=== PATIENT | male | born 1965 | race Caucasian/White ===

== ENCOUNTER 2021-05-25 08:00 | Outpatient (CLI) | payer BC, SELFPAY ==
--- NOTE | ~2021-05-25 | XR_ITS ---
EXAMINATION: XR lg joint inject/asp w image DATE: 05/25/2021 08:46 INDICATION: Unilateral primary osteoarthritis, right hip. TECHNIQUE: A time-out was performed to verify the patient's name, date of , and procedure to b e performed. The procedure including the risks, benefits, and alternatives was discussed with the pat ient. Risks discussed included bleeding and infection. The patient understood the risks and agreed to proceed. The skin overlying the right hip joint was prepped and draped in usual sterile fashion. A nesthetic was administered with 1% lidocaine subcutaneously. A 22 G needle was advanced under fluoro scopic guidance into the joint. Injection of 1 mL of Omnipaque 240 confirmed intra-articular positio n of the needle. Subsequently, injectate consisting of 5 mL 1% lidocaine and 2 mL 10 mg/mL Kenalog w as instilled. The needle was removed and the entry site was cleaned and dressed. There were no imme diate complications. Fluoroscopy exposure time w 0.0 minutes. The total number of images was 1. FINDINGS: Real-time fluoroscopy demonstrates the needle in the right hip joint. Patient's pain prior to procedure:6/10. Patient's pain following the procedure: /10. IMPRESSION: 1. Fluoroscopy guided right hip joint injection of local anesthetic and steroid with decrease in the patient's presenting pain. Reviewed, dictated and finalized at location A.
== END 2021-05-25 08:01 | disposition home or self-care (01) ==
LOC: ANHIMG 08:06
PROVIDERS: PCP Emergency Medicine; Visit Provider Orthopaedic Surgery
DX: M25.551 Pain in right hip (principal); M16.11 Unilateral primary osteoarthritis, right hip
CPT/HCPCS: 20610; 77002; J3301; Q9966

== ENCOUNTER 2022-03-27 13:54 | Outpatient (CLI) | payer BC, SELFPAY ==
--- NOTE | 2022-03-27 15:05 | ECG_ITS ---
Measurements Intervals [place] Rate: 67 P: 0 TX: 162 QRS: 11 QRSD: 105 T: 30 QT: 389 QTc: 413 Interpretive Statements SINUS RHYTHM NORMAL ECG Electronically Signed On 03-27-2022 16:03:38 CDT by Ronnie Edmonds D.O.
[2022-03-27 15:34] LABS: Basophils Percent Auto 0.2 % (0.2-1.2); Eosinophils Absolute Auto 0.4 K/mm3 (0-0.3); Eosinophils Percent Auto 4.1 % (0-4.4); Hematocrit 40.5 % (42.0-52.0); Hemoglobin 13.8 g/dL (14.0-18.0); Immature Granulocyte Absolute 0.04 K/mm3 (0.00-0.031); Immature Granulocyte Percent A 0.5 % (0-0.5); Lymphocytes Absolute Auto 2.55 K/mm3 (0.9-3.2); Lymphocytes Percent Auto 29.3 % (18.3-44.2); Mean Corpuscular HGB Conc 34.1 g/dl (32-36); Mean Corpuscular Hemoglobin 31.2 pg (26-34); Mean Corpuscular Volume 91.6 fl (80-100); Mean Platelet Volume 9.2 fl (7.4-10.4); Monocytes Absolute Auto 0.7 K/mm3 (0.1-0.6); Monocytes Percent Auto 7.7 % (2.6-8.5); Neutrophils Absolute Auto 5.1 K/mm3 (1.3-6.7); Neutrophils Percent Auto 58.2 % (45.5-73.1); Platelet Count Result 302 k/mm3 (150-375); Red Blood Count 4.42 M/mm3 (4.6-6.20); Red Cell Distribution Width 12.5 % (11.5-14.5); White Blood Count 8.7 K/mm3 (4.5-10.0)
[2022-03-27 15:35] LABS: Appearance Urine Clear (Clear); Bilirubin Urine Negative (Negative); Blood Urine Negative (Negative); Glucose Urine UA Negative (Negative); Ketones Urine Negative (Negative); Leukocyte Esterase Ur Negative LEU/UL (Negative); Nitrate Urine Negative (Negative); Protein Urine Negative (Negative); Urobilinogen Urine 0.2 mg/dL (<2.0)
[2022-03-27 15:37] LABS: Add Urine Microscopic? NO; Color Urine Light Yellow (Yellow)
[2022-03-27 15:44] LABS: Albumin Level 4.8 g/dL (3.5-5.1); Anion Gap 13 mmol/L (8-16); Blood Urea Nitrogen 10 mg/dL (9-20); Calcium 8.9 mg/dL (8.4-10.2); Carbon Dioxide 29 mmol/L (22-30); Chloride 97 mmol/L (98-107); Estimated Glomerular Filt Rate > 60; Glucose 95 mg/dL (65-110); Potassium 3.7 mmol/L (3.4-5.0); Sodium 139 mmol/L (137-145)
[2022-03-27 15:46] LABS: INR 1.1; Partial Thromboplastin Time 26.9 SECONDS (22.3-36.8); Prothrombin Time 13.7 Seconds (11.1-14.7)
[2022-03-27 16:34] LABS: Urine Cotinine NEGATIVE
[2022-03-27 20:19] LABS: Hemoglobin A1C 5.9 % (<5.7)
== END 2022-03-27 13:55 | disposition home or self-care (01) ==
PROVIDERS: Orthopaedic Surgery
DX: Z01.818 Encounter for other preprocedural examination (principal); M16.11 Unilateral primary osteoarthritis, right hip
CPT/HCPCS: 80048; 80307; 81003; 82040; 83036; 85025; 85610; 85730; 87081; 93005

== ENCOUNTER 2022-04-10 00:11 | Day surgery (SDC) | payer BC, SELFPAY ==
[2022-03-27 14:05] VITALS: BMI 37.0
--- NOTE | 2022-03-27 14:38 | PC.NURSE ---
Report to the Outpatient Waiting Room, entrance under the green pavilion located off [facility], at time _0600 on date ___04/10/22____. OR Time: _729 . - You and your visitor will be asked a series of questions to screen for COVID 19 for your protection. - Only one visitor is allowed at this time. - The patient visitor is requested to leave or wait in car when not with patient. - A mask is required within the hospital. Patients may have clear liquids (water, carbonated beverages, clear teas, apple juice) until 3 hours prior to surgery with a maximum of 20 ounces. - No food from midnight until time of surgery - Infants may have breast milk until 4 hours before surgery, infant formula 6 hours prior to surgery. - Children will be allowed to drink immediately following surgery. If applicable, please bring a bottle or sippy cup to assist with drinking. Juice, water, soda, and popsicles are readily available. For infants on formula, please bring formula the day of surgery. Pacifiers are allowed. Take the following medications with a SIP of water the morning of surgery: ____ESCITALOPRAM Medications to discontinue per physician ___PT STATES IBUPROFEN 7 DAYS PRE OP PER DR JENKINS. ALL VITAMINS AND SUPPLEMENTS 3 DAYS PRE OP Date to take last dose_IBUPROFEN 04/02/22. ALL VIT/SUPP 04/06/22 Please no make-up, nail tamazight, hairspray, perfume, deodorant, or body powder the day of surgery. No jewelry (including any body piercings) or valuables the day of surgery, leave them at home. Please take a shower or bath the night before, or the morning of, surgery with an antibacterial soap. Wear comfortable, loose fitting clothing. Children are encouraged to wear pajamas. - Jewelry must be removed prior to entering the operating room. Rings and piercings that are not removed may be cut off. - The hospital will not accept responsibility for valuables. - Please leave all valuables, including medications, at home the day of surgery. If you are going home after surgery, a licensed lokie driver must drive you home. - NO public transportation without another adult. - We recommend that an adult stay with you for 24 hours following discharge. - We also recommend that you do not drive, make important decision, drink alcoholic beverages, or take any drugs that were not prescribed by your health care provider for at least 24 hours after your discharge time. For Pediatric surgeries, we recommend two adults accompany the child home (only one inside the building at this time). Follow any additional instructions given to you from your surgeon. If you or anyone in your household have experienced Covid symptoms in the past week, please notify your surgeon or the nurse liaison at the phone number below for possible testing. VERBAL AND WRITTEN instructions given to __PATIENT and asked if any additional questions and then verbalized understanding. Patient advised to call surgeon office or pre surgery nurse liaison [phone] if any additional questions.
[2022-03-27 15:00] VITALS: BP 153/94; PULSE 75; RESP 18; TEMP 37.1; O2SAT 98
[2022-04-10] VITALS (15 sets, daily range): BP systolic 114–139; BP diastolic 65–82; PULSE 77–102; RESP 12–20; TEMP 35.9–36.4; O2SAT 94–100
--- NOTE | ~2022-04-10 | XR_ITS ---
EXAMINATION: XR hip RT min 2V DATE: 04/10/2022 11:04 INDICATION: Right total hip breath or possibly TECHNIQUE: 2 views right hip FINDINGS: There is a right total hip arthroplasty in expected position. Subcutaneous gas with soft t issue swelling are consistent with recent surgery. IMPRESSION: 1. Recent right total hip arthroplasty. Reviewed, dictated and finalized at location A.
--- NOTE | 2022-04-10 06:59 | WPDANESEPPF ---
Anes - Initial Pre Proc Eval Procedure: Operation Date: 04/10/22 07:30 Proposed Procedures p Right Total Hip Arthroplasty - Grey Cruz MD Date/Time: 04/10/22 06:59 Surgeon: Grey Cruz MD Pre Op Diagnosis: right hip DJD Patient Data Age: 57 Gender: M Height: 1.78 m Weight: 117.3 kg Last Vital Signs Temp 37.1 C 03/27/22 15:00 Pulse 75 03/27/22 15:00 Resp 18 03/27/22 15:00 BP 153/94 H 03/27/22 15:00 Pulse Ox 98 03/27/22 15:00 O2 Del Method Room Air 03/27/22 15:00 Allergies Allergy/AdvReac Type Severity Reaction Status Date / Time No Known Allergies Allergy Verified 04/10/22 06:37 Home Medications Medication Instructions Recorded Confirmed Type escitalopram oxalate 20 mg tablet 20 mg PO HS 05/22/21 04/10/22 History metformin 500 mg tablet 500 mg PO BID 05/22/21 04/10/22 History omega-3 fatty acids 1,000 mg 1,000 mg PO HS 05/22/21 04/10/22 History capsule (Fish Oil Concentrate) acetaminophen 650 mg 1,300 mg PO DAILY 03/27/22 04/10/22 History tablet,extended release (Tylenol Arthritis Pain) atorvastatin 20 mg tablet 20 mg PO HS 03/27/22 04/10/22 History fluticasone propionate 50 1 spray intranasal PRN PRN Allergy 03/27/22 03/27/22 History mcg/actuation nasal Symptoms spray,suspension (Flonase Allergy Relief) ibuprofen 600 mg tablet 600 mg PO PRN PRN Pain 03/27/22 04/10/22 History multivitamin 1 tablet PO DAILY 03/27/22 04/10/22 History semaglutide 0.25 mg or 0.5 mg (2 0.5 mg subcut WEEKLY 03/27/22 03/27/22 History mg/1.5 mL) subcutaneous pen injector (Ozempic) chlorhexidine gluconate 4 % 1 applic topical ONCE #237 mL 04/03/22 Rx topical liquid (Hibiclens) chlorthalidone 25 mg tablet 50 mg PO DAILY 04/09/22 04/10/22 History lisinopril 20 mg tablet 40 mg PO DAILY 04/09/22 04/10/22 History Patient hx anesthesia problems: none and other (occas motion sickness) Family hx anesthesia problems: none Results Review: All pre-operative results and documents have been reviewed as part of the pre-operative evaluation. [facility] Past Medical History Medical History Anxiety Arthritis Degenerative joint disease (DJD) of hip Diabetes pt states a1c is under 7 Hypertension RAQUEL (obstructive sleep apnea) Osteoarthritis of hips, bilateral Pain in right hip Wears glasses Surgical History Surgical History History of cholecystectomy History of hernia repair History of melanoma excision History of tonsillectomy Family History Family History Mother Asthma Hypertension Depression Cerebrovascular accident Social History Social History Smoking status: Never smoker Additional smoking assessment comments: DENIES ANY FORM OF TOBACCO USE Living arrangements: with family Additional occupation/education comments: [employer] Spiritual care concerns: No Anes - Eval Final PreProcedure Day of Procedure 04/10/22 06:59 Patient weight: obese Heart: regular rate and rhythm Lungs: clear to auscultation Airway: Mallampati scale (incisor caps one cracked in rear) class II Neurological: alert and oriented Last oral intake: >/= 8 hours ASA classification: III Emergent: no Anesthetic plan: proceed Anesthesia type and monitoring: general ETT and standard monitoring Results Review: All pre-operative results and documents have been reviewed as part of the pre-operative evaluation. Informed Consent: The patient's anesthetic plan and its attendant risks and benefits were discussed with the patient/family/POA. Questions were solicited and answers provided to the satisfaction of the patient/family/POA.
[2022-04-10] MEDS: ACETAMINOPHEN 500 MG TABLET 1000 MG PO (07:01)
[2022-04-10] MEDS: TRANEXAMIC ACID 1,000MG/ISO100 1,000 MG/100 ML BAG 200 MG IVPB (07:03)
[2022-04-10] MEDS: LACTATED RINGERS 1,000 ML 30 ML IV CONT ×2 (07:09→10:50)
[2022-04-10 07:14] LABS: Glucose Point of Care 155 mg/dl (65-105)
--- NOTE | 2022-04-10 07:16 | WPDHPUPDATE1 ---
History and Physical Update Update Date/Time: 04/10/22 07:16 History and Physical has been reviewed, including an updated exam of the patient. There are NO changes in the patient's condition. Risks, benefits, and alternatives have been discussed and questions answered. Patient agrees to proceed with procedure.
[2022-04-10] MEDS: ceFAZolin 2 GM/D5W 50 ML 2 GM/50 ML BAG IVPB ×3 (07:34→23:05)
[2022-04-10] MEDS: TRANEXAMIC ACID 1,000 MG/10 ML AMPUL 1000 MG IV PUSH (09:48)
--- NOTE | 2022-04-10 10:57 | W.PM.PROC2 ---
Procedure Note - Detailed Date of Procedure 04/10/22 Pre-op Diagnosis right hip DJD Post-op Diagnosis Same Procedure Performed R HEATH Surgeon Grey Cruz MD Anesthesia General Description of Procedure THE PATIENT WAS TAKEN TO THE OPERATING ROOM IN STABLE CONDITION AND WAS PLACED IN THE LATERAL DECUBITUS AND THE RIGHT LOWER EXTREMITY WAS PREPPED AND DRAPED IN THE STERILE FASHION. INCISION WAS MADE IN THE POSTERIOR LATERAL SIDE OF THE HIP, DOWN TO THE FASCIA LAYER. THE FASCIA WAS INCISED. THE HIP WAS EXPOSED. THE SHORT EXTERNAL ROTATORS WERE EXPOSED. THE SCIATIC NERVE WAS IDENTIFIED. THERE WAS A HIGH BIFURCATION OF THE NERVE. INCISION WAS MADE THROUGH THE SORT EXTERNAL ROTATORS AND THE CAPSULE OF THE HIP JOINT. THE HIP WAS DISLOCATED. AN OSTEOTOMY WAS MADE TO THE FEMORAL NECK ABOUT 1 CM PROXIMAL TO THE LESSER TROCHANTER. THE ACETABULUM WAS EXPOSED. THERE WAS SEVERE DJD SEEN. BEGINNING WITH A 44 REAMER THE ACETABULUM WAS REAMED TO 57 MM. A 57 MM TRIAL WAS PLACED IN 35 DEG OF ABDUCTION AND ANTEVERSION WAS IN ALIGNMENT WITH THE TRANS ACETABULAR LIGAMENT. THE FIT WAS EXCELLENT. THE TRIAL WAS REMOVED. A 58 MM BIOMET G7 COMPONENT WAS THEN TAPPED IN TO PLACE IN 35 DEG OF ABDUCTION AND ANTEVERSION IN ALIGNMENT WITH THE TRANSVERSE ACETABULAR LIGAMENT. THE FIT WAS EXCELLENT. THE ACETABULAR LINER WAS PLACED AND CHECKED FOR STABILITY. NEXT THE FEMUR WAS PREPARED WITH INITIAL CANAL FINDER THEN SEQUENTIAL BROACHING WITH A TAPERLOC HIP SYSTEM, UNTIL A 12 BROACH FIT WELL IN 15 OF ANTEVERSION. A 0 HIGH OFFSET NECK WITH 36 MM HEAD TRIAL WAS PLACED. THE SHUCK TEST WAS EXCELLENT AND THE STABILITY IN FLEXION AND ROTATION WAS EXCELLENT. LEG LENGTHS WERE GROSSLY EQUAL. TRIALS WERE REMOVED. A BIOMET TAPERLOC 12 STEM WAS PLACED WITH A HIGH OFFSET NECK. THE FIT WAS EXCELLENT IN 15 DEG OF ANTEVERSION. A 0 CERAMIC 36 MM FEMORAL HEAD WAS PLACED. THE HIP WAS TRIALED AND THE STABILITY WAS EXCELLENT WERE THE LEG LENGTHS AND THE SHUCK TEST. THE WOUND WAS IRRIGATED WITH STERILE BETADINE AND WATER FOR 3 MIN. THEN WASHED AGAIN. THE CAPSULE AND THE EXTERNAL ROTATORS WERE APPROXIMATED WITH NUMBER 1 VICRYL. THE FASCIA WITH No 2 QUIL AND THE SUB CUTANEOUS LAYER WITH 2-0 ABSORBABLE SUTURE WITH A RUNNING 3-0 SUBCUTICULAR LAYER WELL. DERMABOND WAS PLACED AND STERILE DRESSING WAS APPLIED. PATIENT WAS PLACED BACK ON TO THE SUPINE POSITION AND WAS EXTUBATED Estimated Blood Loss 500 Complications No immediate complications Condition Stable Disposition PACU
[2022-04-10] MEDS: fentaNYL CITRATE INJ (*CRX) 100 MCG/2 ML VIAL 25 MCG IV PUSH ×6 (11:00→11:44)
[2022-04-10 11:09] LABS: Glucose Point of Care 203 mg/dl (65-105)
[2022-04-10] MEDS: HYDROcodone/acetaminophen (*CRX) 7.5-325 MG TABLET 1 TAB PO (13:00)
[2022-04-10] MEDS: SODIUM CHLORIDE 0.9% IV 1,000 ML 125 ML IV CONT (13:00)
[2022-04-10] MEDS: KETOROLAC 15 MG/ML VIAL (*BKC) IV PUSH ×3 (13:03→23:12)
--- NOTE | 2022-04-10 13:08 | ADMGEN ---
This patient, Sung Wheeler, was admitted to Medical Room 248-. Patient/family oriented to hospital policies and general routines including ID bracelet, bed and alarms, visiting hours, pain management, procedures, bathroom and other care routines, personal items, smoking policy, room service/diet, and visiting hours. Information on how to activate the Rapid Response Team has been discussed. Patient/Family are encouraged to report perceived risks to care and to ask questions if they do not understand what they are told or what they should do.
[2022-04-10 13:30] LABS: Glucose Point of Care 201 mg/dl (65-105)
[2022-04-10] MEDS: ONDANSETRON INJ 4 MG/2 ML VIAL IV PUSH (14:48)
[2022-04-10] MEDS: metFORMIN HCL 500 MG TABLET PO (16:50)
[2022-04-10] MEDS: SENNA/DOCUSATE SODIUM TABLET 2 TAB PO (16:51)
[2022-04-10 17:20] LABS: Glucose Point of Care 220 mg/dl (65-105)
--- NOTE | 2022-04-10 19:22 | PC.NURSE ---
On 04/10/22, the Graduate Nurse, Corby Santoro, provided care and completed [facility] documentation on this patient. I have reviewed the student's documentation and agree with the findings.
[2022-04-10] MEDS: ESCITALOPRAM OXALATE 10 MG TABLET 20 MG PO (20:26)
[2022-04-10] MEDS: ATORVASTATIN 20 MG TABLET PO (20:26)
[2022-04-10 21:03] LABS: Glucose Point of Care 190 mg/dl (65-105)
[2022-04-11 00:45] VITALS: PULSE 84; O2SAT 98
[2022-04-11 01:58] VITALS: BP 124/73; PULSE 88; RESP 20; TEMP 36.2; O2SAT 99
[2022-04-11 03:23] VITALS: PULSE 87; O2SAT 96
[2022-04-11 05:38] VITALS: BP 126/73; PULSE 79; RESP 21; TEMP 36.2; O2SAT 100
[2022-04-11] MEDS: ceFAZolin 2 GM/D5W 50 ML 2 GM/50 ML BAG IVPB (06:01)
[2022-04-11] MEDS: KETOROLAC 15 MG/ML VIAL (*BKC) IV PUSH ×2 (06:02→11:43)
--- NOTE | 2022-04-11 07:54 | WPDANESPN ---
Anes - Prog Note Post-Op Date/Time: 04/11/22 07:54 Cardiovascular status: normal Respiratory status: normal Airway patency: baseline Mental status: baseline Post-Op hydration status: normal Vital Signs: Last Vital Signs Temp 97.2 F L 04/11/22 05:38 Pulse 79 04/11/22 05:38 Resp 21 H 04/11/22 05:38 BP 126/73 04/11/22 05:38 Pulse Ox 100 04/11/22 05:38 O2 Del Method CPAP 04/11/22 03:23 O2 Flow Rate 2 04/10/22 12:45 Pain Score (VAS): 09/11 I/O: Intake & Output 04/10/22 04/10/22 04/11/22 15:59 23:59 07:59 Intake Total 1600 2365 530 Output Total 225 900 Balance 1600 2140 -370 04/10/22 04/10/22 04/10/22 06:56 11:06 13:26 POC Capillary Glucose 203 H 201 H Blood Type O Negative Antibody Screen Negative 04/10/22 04/10/22 17:08 20:24 POC Capillary Glucose 220 H 190 H Blood Type Antibody Screen Patient Feedback: Patient satisfied with anesthetic care.
[2022-04-11] MEDS: SENNA/DOCUSATE SODIUM TABLET 2 TAB PO (08:59)
[2022-04-11] MEDS: CHLORTHALIDONE 25 MG TABLET 50 MG PO (09:00)
[2022-04-11] MEDS: ASPIRIN 325 MG ENTERIC TABLET 650 MG PO (09:00)
[2022-04-11] MEDS: metFORMIN HCL 500 MG TABLET PO (09:00)
[2022-04-11] MEDS: lisinopriL 20 MG TABLET 40 MG PO (09:00)
[2022-04-11] MEDS: polyethylene glycoL 3350 17 GM POWD.PACK PO (09:01)
[2022-04-11 09:02] LABS: Glucose Point of Care 161 mg/dl (65-105)
[2022-04-11] MEDS: HYDROcodone/acetaminophen (*CRX) 7.5-325 MG TABLET 1 TAB PO ×2 (09:04→15:27)
[2022-04-11 09:16] LABS: Basophils Percent Auto 0.2 % (0.2-1.2); Eosinophils Percent Auto 0.1 % (0-4.4); Hematocrit 31.4 % (42.0-52.0); Hemoglobin 10.7 g/dL (14.0-18.0); Immature Granulocyte Absolute 0.09 K/mm3 (0.00-0.031); Immature Granulocyte Percent A 0.5 % (0-0.5); Lymphocytes Absolute Auto 2.21 K/mm3 (0.9-3.2); Lymphocytes Percent Auto 13.2 % (18.3-44.2); Mean Corpuscular HGB Conc 34.1 g/dl (32-36); Mean Corpuscular Hemoglobin 31.6 pg (26-34); Mean Corpuscular Volume 92.6 fl (80-100); Mean Platelet Volume 9.4 fl (7.4-10.4); Monocytes Absolute Auto 1.4 K/mm3 (0.1-0.6); Monocytes Percent Auto 8.3 % (2.6-8.5); Neutrophils Percent Auto 77.7 % (45.5-73.1); Platelet Count Result 277 k/mm3 (150-375); Red Blood Count 3.39 M/mm3 (4.6-6.20); Red Cell Distribution Width 12.5 % (11.5-14.5); White Blood Count 16.7 K/mm3 (4.5-10.0)
[2022-04-11 09:31] LABS: Anion Gap 12 mmol/L (8-16); Blood Urea Nitrogen 21 mg/dL (9-20); Calcium 8.2 mg/dL (8.4-10.2); Carbon Dioxide 29 mmol/L (22-30); Chloride 87 mmol/L (98-107); Estimated CRCL calculation 92 ml/min; Estimated Glomerular Filt Rate > 60; Glucose 130 mg/dL (65-110); Potassium 3.3 mmol/L (3.4-5.0); Sodium 128 mmol/L (137-145)
[2022-04-11 10:05] VITALS: BP 116/50; PULSE 95; RESP 16; TEMP 37; O2SAT 100
[2022-04-11 11:46] LABS: Glucose Point of Care 139 mg/dl (65-105)
[2022-04-11 14:13] VITALS: BP 126/62; PULSE 94; RESP 16; TEMP 36.7; O2SAT 98
--- NOTE | 2022-04-11 14:52 | PM.PNORT ---
Progress Note: A&P Assessment and Plan (1) S/P total hip arthroplasty: Code(s): Z96.649 - Presence of unspecified artificial hip joint Status: Acute Assessment and Plan: POD 1 DOING WELL. OK TO DC HOME F/U IN 3 WEEKS. Subjective Subjective Date/Time Seen: 04/11/22 14:52 POD 1 DOING WELL. WORKED WELL WITH PT. NO CALF PAIN Exam Extrem: Other: VSS AFEBRILE DRESSING DRY [place] INTACT NEG [employer] SIGN Objective Data Vital Signs Vital Signs: Vital Signs - 24 hr 04/10/22 18:05 04/10/22 20:35 04/10/22 20:00 Temperature 36.1 C L Pulse Rate 102 H 88 Respiratory Rate 17 Blood Pressure 127/65 Pulse Oximetry 100 99 Oxygen Delivery CPAP CPAP 04/10/22 21:31 04/11/22 00:45 04/11/22 01:58 Temperature 36.3 C L 36.2 C L Pulse Rate 87 84 88 Respiratory Rate 20 20 Blood Pressure 124/74 124/73 Pulse Oximetry 98 98 99 Oxygen Delivery CPAP 04/11/22 03:23 04/11/22 05:38 04/11/22 08:00 Temperature 36.2 C L Pulse Rate 87 79 Respiratory Rate 21 H Blood Pressure 126/73 Pulse Oximetry 96 100 Oxygen Delivery CPAP Room Air 04/11/22 10:05 04/11/22 14:13 Temperature 37.0 C 36.7 C Pulse Rate 95 94 Respiratory Rate 16 16 Blood Pressure 116/50 L 126/62 Pulse Oximetry 100 98 Oxygen Delivery Intake/Output Intake/Output: Intake & Output 04/08/22 04/09/22 04/10/22 04/11/22 23:59 23:59 23:59 23:59 Intake Total 4065 990 Output Total 225 1700 Balance 3840 -710 Meds/Results Medications: Active Medications Generic Name Dose Route Start Last Admin Trade Name Freq PRN Reason Stop Dose Admin Acetaminophen 650 mg 04/10/22 12:14 Acetaminophen 325 Mg Tablet PO Q6H PRN Mild Pain (1-3) or Fever Hydrocodone Bitart/Acetaminophen 1 tab 04/10/22 12:14 04/11/22 09:04 Hydrocodone/Acetaminophen (*Crx) 7.5-325 Mg Tablet PO 1 tab Q3H PRN Administration Pain Rated 4-6 Aspirin 650 mg 04/11/22 09:00 04/11/22 09:00 Aspirin 325 Mg Enteric Tablet PO 650 mg DAILY DEDE Administration Atorvastatin Calcium 20 mg 04/10/22 21:00 04/10/22 20:26 Atorvastatin 20 Mg Tablet PO 20 mg HS DEDE Administration Chlorthalidone 50 mg 04/11/22 09:00 04/11/22 09:00 Chlorthalidone 25 Mg Tablet PO 50 mg DAILY DEDE Administration Diazepam 5 mg 04/10/22 12:14 Diazepam (*Crx) 5 Mg Tablet PO Q6H PRN Anxiety/Muscle Spasm Escitalopram Oxalate 20 mg 04/10/22 21:00 04/10/22 20:26 Escitalopram Oxalate 10 Mg Tablet PO 20 mg HS DEDE Administration Hydroxyzine HCl 50 mg 04/10/22 12:14 Hydroxyzine Hcl 25 Mg Tablet PO Q4H PRN Itching Lisinopril 40 mg 04/11/22 09:00 04/11/22 09:00 Lisinopril 20 Mg Tablet PO 40 mg DAILY DEDE Administration Metformin HCl 500 mg 04/10/22 17:00 04/11/22 09:00 Metformin Hcl 500 Mg Tablet PO 500 mg BIDWM DEDE Administration Miscellaneous Information 0 each 04/10/22 00:01 Semaglutide [Ozempic] = Non Formulary XX 05/10/22 00:00 [facility] Morphine Sulfate 3 mg 04/10/22 12:14 Morphine Sulfate (*Crx) 4 Mg/Ml Inj IV PUSH Q3H PRN Pain Rated 7-10 Naloxone HCl 0.1 mg 04/10/22 12:14 Naloxone Hcl 0.4 Mg/Ml Vial IV PUSH Q2M PRN Opiate Reversal Non-Formulary Medication 0.5 mg 04/17/22 09:00 Semaglutide [Ozempic] SUB-Q 05/17/22 08:59 WEEKLY [facility] Ondansetron HCl 4 mg 04/10/22 12:14 04/10/22 14:48 Ondansetron Inj 4 Mg/2 Ml Vial IV PUSH 4 mg Q4H PRN Administration Nausea And Vomiting Polyethylene Glycol 17 gm 04/11/22 09:00 04/11/22 09:01 Polyethylene Glycol 3350 17 Gm Powd.Pack PO 17 gm QAM DEDE Administration Senna/Docusate Sodium 2 tab 04/10/22 17:00 04/11/22 08:59 Senna/Docusate Sodium Tablet PO 2 tab BID DEDE Administration Radiology Results: ITS Impressions Hip X-Ray 04/10/22 11:37 IMPRESSION: 1. Recent right total hip arthroplasty. Labs Labs:
--- NOTE | 2022-04-11 14:54 | PM.DS ---
DS: Admitting Diagnosis Discharge Date 04/11/22 Admitting Diagnosis RIGHT HIP DJD DS: Discharge Diagnosis Discharge Diagnosis (1) S/P total hip arthroplasty: Code(s): Z96.649 - Presence of unspecified artificial hip joint Status: Acute DS: Summary Hospital Course Reason for hospitalization: PATIENT WAS ADMITTED S/P TOTAL RIGHT HEATH Hospital Course: PATIENT WAS ADMITTED S/P TOTAL RIGHT HIP ARTHROPLASTY FOR POSTOPERATIVE MEDICAL MANAGEMENT, PAIN CONTROL AND MOBILIZATION WITH PHYSICAL AND OCCUPATIONAL THERAPY. THE PATIENT PROGRESSED WELL WITH PT/OT. LABS AND VITALS REMAINED STABLE AND PAIN WELL CONTROLLED. THE PATIENT HAS BEEN CLEARED TO BE DISCHARGED []. FOLLOW UP APPOINTMENT SCHEDULED. DISCHARGE INSTRUCTIONS DISCUSSED AT LENGTH WITH THE PATIENT. MEDICATIONS REVIEWED. Status at Discharge Cognitive/behavioral status at discharge: STABLE Functional status at discharge: uses cane/walker Time Spent with Patient Time attestation: Total time spent providing and/or coordinating discharge services: Time spent: Less than 30 minutes DS: Data Data Completed and Pending Labs on day of discharge: Labs from last 24 hours 04/11/22 04/11/22 04/11/22 11:29 09:10 09:10 WBC 16.7 H RBC 3.39 L Hgb 10.7 L D Hct 31.4 L MCV 92.6 MCH 31.6 MCHC 34.1 RDW 12.5 Plt Count 277 MPV 9.4 Immature Gran % (Auto) 0.5 Neut % (Auto) 77.7 H Lymph % (Auto) 13.2 L [place] % (Auto) 8.3 Eos % (Auto) 0.1 Baso % (Auto) 0.2 Lymph # (Auto) 2.21 [place] # (Auto) 1.4 H Eos # (Auto) 0.0 Baso # (Auto) 0.0 Abs Immat Gran (auto) 0.09 H Absolute Neuts (auto) 13.0 H Absolute Nucleated RBC 0.0 Nucleated RBC % 0.0 Sodium 128 L Potassium 3.3 L Chloride 87 L Carbon Dioxide 29 Anion Gap 12 BUN 21 H D Creatinine 1.00 Estim Creat Clear Calc 92 Estimated GFR > 60 Glucose 130 H POC Capillary Glucose 139 H Calcium 8.2 L 04/11/22 04/10/22 04/10/22 08:58 20:24 17:08 WBC RBC Hgb Hct MCV MCH MCHC RDW Plt Count MPV Immature Gran % (Auto) Neut % (Auto) Lymph % (Auto) [place] % (Auto) Eos % (Auto) Baso % (Auto) Lymph # (Auto) [place] # (Auto) Eos # (Auto) Baso # (Auto) Abs Immat Gran (auto) Absolute Neuts (auto) Absolute Nucleated RBC Nucleated RBC % Sodium Potassium Chloride Carbon Dioxide Anion Gap BUN Creatinine Estim Creat Clear Calc Estimated GFR Glucose POC Capillary Glucose 161 H 190 H 220 H Calcium Procedures/Treatments: R HEATH Discharge Plan Discharge Patient Disposition: Home Health Service Discharge Instructions: Post Op Total Hip Replacement Instructions Dr. Grey Cruz [phone] Your dressing will be changed prior to your discharge. You will be sent home with one additional dressing to be changed on post op day 7 by the home health RN. You may remove the dressing on post op day 14. Your incision was closed with dermabond, allow the dermabond to fall off naturally once your dressing is removed. Do not pull at the dermabond or disrupt incision healing. You may shower with your dressing but do not submerge in a bath tub. Do not drive or operate machinery until you are released by Dr. Cruz. Do not walk without a walker for any reason until you are released by Dr. Cruz. Continue to apply ice to the hip intermittently for additional pain relief. Protect your skin with a towel or pillow case. Continue to follow strict total hip replacement precautions. Your first post op appointment was sent to you via mail preoperatively. If you have any questions or are unable to make your appointment, please contact our office for scheduling questions. Your medications have been sent to your pharmacy. You have been sent home with pain medication. We have also sent you with a stool softener as narcotics can ca
== END 2022-04-11 15:46 | disposition home health service (06) ==
LOC: ANHSURGERY 06:27 → ANH2MED 12:18
PROVIDERS: Visit Provider Orthopaedic Surgery
PROC: (CPT 27130; principal; 2022-04-10 07:30)
DX: M16.11 Unilateral primary osteoarthritis, right hip (principal); E11.9 Type 2 diabetes mellitus without complications; I10 Essential (primary) hypertension; G47.33 Obstructive sleep apnea (adult) (pediatric); F41.9 Anxiety disorder, unspecified; Z79.84 Long term (current) use of oral hypoglycemic drugs; Z79.899 Other long term (current) drug therapy; E66.9 Obesity, unspecified; Z68.36 Body mass index [BMI] 36.0-36.9, adult
CPT/HCPCS: 27130; 36415; 73502; 80048; 82948; 85025; 86850; 86900; 86901; 97110; 97116; 97161; 97165; 97530; 97535; A9270; C1713; C1776; J0171; J0330; J0690; J1100; J1170; J1885; J2250; J2270; J2370; J2405; J2704; J2795; J3010; J7030; J7120

== ENCOUNTER 2022-07-31 09:28 | Outpatient (CLI) | payer BC, SELFPAY ==
--- NOTE | 2022-07-31 11:30 | NEURO_ITS ---
Impression: # Complains of left 4th and 5th finger numbness. # No Carpal Tunnel Syndrome. # Left ulnar neuropathy around the elbow. 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 Motor Nerve Conduction Upper Extremities Median Nerve Conduction Velocity (m/sec) Terminal Latency (msec) Response Voltage(mV) Elbow-Wrist Wrist Elbow Wrist Right Left 52 3.1 3 5 Ulnar Nerve Conduction Velocity (m/sec) Terminal Latency (msec) Response Voltage(mV) Above Elbow Below Elbow Wrist Above Elbow Below Elbow Wrist Right Left 38 38 3.0 3 3 4 F-Wave Latency Median (ms) Ulnar (ms) Right Left 31.9 33.0 Sensory Nerve Conduction Upper Extremities Median Nerve Stimulation Terminal Latency (msec) Wrist/Digit Response Voltage (uV) Wrist Right Left 3.2/3.1 76/72 Ulnar Nerve Stimulation Terminal Latency (msec) Wrist/Digit Response Voltage (uV) Wrist Right Left 3.2 5 Radial Nerve Terminal Latency (msec) Response Voltage(mV) Right Left 2.1 15 Left Right Muscles Examined Fibrillation Fasciculation Scarcity Voltage Duration Left Right Left Right Left Right Left Right Left Right Deltoid Biceps X Brachioradialis Triceps X Pronator Teres X Ext Indicis X Ext Digitorum X Abd Poll Brev X 1st Dorsal Interosseus X Abd Dig Min Incr >12ms MTDD
== END 2022-07-31 09:29 | disposition home or self-care (01) ==
LOC: ANHNEURO 09:30
PROVIDERS: Visit Provider Orthopaedic Surgery
DX: G56.22 Lesion of ulnar nerve, left upper limb (principal)
CPT/HCPCS: 95886; 95909

== ENCOUNTER 2022-08-14 00:58 | Day surgery (SDC) | payer BC, SELFPAY ==
[2022-08-07 09:41] VITALS: BMI 35.9
--- NOTE | 2022-08-07 09:47 | PC.NURSE ---
Report to the Outpatient Waiting Room, entrance under the green pavilion located off [facility], at time 7:00 on date 08/14/22. Planned Procedure Time: 9:00. Time changes happen often and if your time is changed the preop area will call you the afternoon before. - You and your visitor will be asked to self-screen and do not enter if you have any COVID symptoms. - Only one visitor is requested with a max of two and NO children visitors are allowed at this time. - The patient visitor may be requested to leave or wait in car when not with patient due to distancing restrictions. - A mask is optional within the hospital. Patients may have clear liquids (water, carbonated beverages, clear teas, apple juice) until 3 hours prior to surgery (6:00) with a maximum of 20 ounces. - No food from midnight until time of surgery Take the following medications with a SIP of water the morning of surgery: NONE Medications to discontinue per physician: VITAMIN Date to take last dose: 08/10/22 Please no make-up, nail chinese, hairspray, perfume, deodorant, or body powder the day of surgery. No jewelry (including any body piercings) or valuables the day of surgery, leave them at home. Please take a shower or bath the night before, or the morning of, surgery with an antibacterial soap. Wear comfortable, loose fitting clothing. - Jewelry must be removed prior to entering the operating room. Rings and piercings that are not removed may be cut off. - The hospital will not accept responsibility for valuables. - Please leave all valuables, including medications, at home the day of surgery. If you are going home after surgery, a licensed straddle bug driver must drive you home. - NO public transportation without another adult if you receive anesthesia. - We recommend that an adult stay with you for 24 hours following discharge. - We also recommend that you do not drive, make important decision, drink alcoholic beverages, or take any drugs that were not prescribed by your health care provider for at least 24 hours after your discharge time. Follow any additional instructions given to you from your surgeon. If you or anyone in your household have experienced Covid symptoms in the past week, please notify your surgeon or the nurse liaison at the phone number below for possible testing. Telephone instructions given to PT - JOSEFINA JEFFERY and asked if any additional questions and then verbalized understanding. Patient advised to call surgeon office or pre surgery nurse liaison [phone] if any additional questions.
--- NOTE | 2022-08-13 13:59 | WPDANESEPPF ---
Anes - Initial Pre Proc Eval Procedure: Operation Date: 08/14/22 09:00 Proposed Procedures p Left Cubital Tunnel Release - Grey Cruz MD Date/Time: 08/13/22 13:59 Surgeon: Grey Cruz MD Pre Op Diagnosis: left cubital tunnel syndrome Patient Data Age: 57 Gender: M Height: 1.78 m Weight: 113.4 kg Allergies Allergy/AdvReac Type Severity Reaction Status Date / Time No Known Allergies Allergy Verified 08/14/22 07:31 Home Medications Medication Instructions Recorded Confirmed Type escitalopram oxalate 20 mg tablet 20 mg PO HS 05/22/21 08/09/22 History metformin 500 mg tablet 500 mg PO BID 05/22/21 08/09/22 History acetaminophen 650 mg 1,300 mg PO DAILY PRN Pain 03/27/22 08/09/22 History tablet,extended release (Tylenol Arthritis Pain) atorvastatin 20 mg tablet 20 mg PO HS 03/27/22 08/09/22 History fluticasone propionate 50 1 spray intranasal PRN PRN Allergy 03/27/22 08/09/22 History mcg/actuation nasal Symptoms spray,suspension (Flonase Allergy Relief) ibuprofen 600 mg tablet 600 mg PO PRN PRN Pain 03/27/22 08/09/22 History multivitamin 1 tablet PO DAILY 03/27/22 08/14/22 History semaglutide 0.25 mg or 0.5 mg (2 0.5 mg subcut WEEKLY 03/27/22 08/09/22 History mg/1.5 mL) subcutaneous pen injector (Ozempic) chlorthalidone 25 mg tablet 50 mg PO DAILY 04/09/22 08/09/22 History lisinopril 20 mg tablet 40 mg PO DAILY 04/09/22 08/09/22 History Patient hx anesthesia problems: none Family hx anesthesia problems: none Results Review: All pre-operative results and documents have been reviewed as part of the pre-operative evaluation. [facility] Past Medical History Medical History (Updated 08/13/22 @ 14:00 by Terrell Sanabria MD) Anxiety Arthritis Degenerative joint disease (DJD) of hip Diabetes pt states a1c is under 7 Hypertension Obesity RAQUEL (obstructive sleep apnea) Osteoarthritis of hips, bilateral Pain in right hip Wears glasses Surgical History Surgical History History of cholecystectomy History of hernia repair History of melanoma excision History of tonsillectomy S/P total hip arthroplasty Family History Family History Mother Asthma Hypertension Depression Cerebrovascular accident Social History Social History Smoking status: Never smoker Additional smoking assessment comments: DENIES ANY FORM OF TOBACCO USE Alcohol intake: current Drinks per week: 1 Alcohol use details: VERY RARE Substance use: never Substance use type: does not use Living arrangements: with family Additional occupation/education comments: [employer] Spiritual care concerns: No Anes - Eval Final PreProcedure Day of Procedure 08/13/22 13:59 Patient weight: obese Heart: regular rate and rhythm Lungs: clear to auscultation Airway: Mallampati scale (incisor caps one cracked in rear) class II Neurological: alert and oriented Last oral intake: >/= 8 hours ASA classification: III Emergent: no Anesthetic plan: proceed Anesthesia type and monitoring: general LMA and standard monitoring Results Review: All pre-operative results and documents have been reviewed as part of the pre-operative evaluation. Informed Consent: The patient's anesthetic plan and its attendant risks and benefits were discussed with the patient/family/POA. Questions were solicited and answers provided to the satisfaction of the patient/family/POA.
[2022-08-14] VITALS (7 sets, daily range): BP systolic 103–141; BP diastolic 60–81; PULSE 61–75; RESP 12–16; TEMP 36.1–36.6; O2SAT 98–100; BMI 34.9
--- NOTE | 2022-08-14 06:58 | WPDHPUPDATE1 ---
History and Physical Update Update Date/Time: 08/14/22 06:58 History and Physical has been reviewed, including an updated exam of the patient. There are NO changes in the patient's condition. Risks, benefits, and alternatives have been discussed and questions answered. Patient agrees to proceed with procedure.
[2022-08-14] MEDS: LACTATED RINGERS 1,000 ML 30 ML IV CONT (07:50)
[2022-08-14] MEDS: ACETAMINOPHEN 500 MG TABLET 1000 MG PO (08:08)
[2022-08-14] MEDS: CELECOXIB 200 MG CAPSULE PO (08:08)
[2022-08-14 08:15] LABS: Glucose Point of Care 130 mg/dl (65-105)
--- NOTE | 2022-08-14 09:23 | WPDHPUPDATE1 ---
History and Physical Update Update Date/Time: 08/14/22 09:23 PLAN FOR LEFT CUBITAL TUNNEL RELEASE History and Physical has been reviewed, including an updated exam of the patient. There are NO changes in the patient's condition. Risks, benefits, and alternatives have been discussed and questions answered. Patient agrees to proceed with procedure.
[2022-08-14] MEDS: ceFAZolin 2 GM/D5W 50 ML 2 GM/50 ML BAG IVPB (09:32)
[2022-08-14] MEDS: BUPIVACAINE HCL 0.5% PF 30 ML VIAL INFILTRATE (10:06)
--- NOTE | 2022-08-14 10:56 | W.PM.PROC2 ---
Procedure Note - Detailed Date of Procedure 08/14/22 Pre-op Diagnosis left cubital tunnel syndrome Post-op Diagnosis Same Procedure Performed LEFT CUBITAL TUNNEL RELEASE Surgeon Grey Cruz MD Anesthesia General Description of Procedure PATIENT WAS TAKEN TO THE OR AND INTUBATED. THE LEFT UPPER EXTREMITY WAS PREPPED AND DRAPED STERILE FROM THE FINGERS TO MID ARM. THE INCISION WAS MADE AT THE INTERVAL BETWEEN THE MEDIAL EPICONDYLE AND OLECRANON DOWN TO THE SUB CUTANEOUS TISSUES THEN TO THE FASCIA. THE ULNAR NERVE WAS PALPATED. DISSECTION CONTINUED UNTIL THE ULNAR NERVE WAS EXPOSED. THE FASCIA WAS THEN RELEASED PROXIMALLY FORM THE LIGAMENT OF STRUTHERS DOWN TO THE FASCIA OF THE ECU MUSCLE. THE RELEASE WAS COMPLETE. THERE WAS NO DAMAGE TO THE ULNAR NERVE. THERE WAS SOME SWELLING TO THE NERVE. THE WOUND WAS WASHED. THE TOURNIQUET WAS DEFLATED AND THE BLEEDERS CAUTERIZED. 3-0 WAS VICRYL WAS USED ON THE SUB CUTANEOUS TISSUES. 3-0 STRATAFIX WAS USED A SUB CUTICULAR STITCH AND DERMABOND WAS USED AN THE SKIN. STERILE DRESSING WAS APPLIED. PATIENT WAS EXTUBATED. Estimated Blood Loss 5 Complications No immediate complications Condition Stable Disposition PACU
[2022-08-14 11:05] LABS: Glucose Point of Care 109 mg/dl (65-105)
== END 2022-08-14 12:37 | disposition home or self-care (01) ==
PROVIDERS: Visit Provider Orthopaedic Surgery
PROC: (CPT 64718; principal; 2022-08-14 09:00)
DX: G56.22 Lesion of ulnar nerve, left upper limb (principal); I10 Essential (primary) hypertension; G47.33 Obstructive sleep apnea (adult) (pediatric); E11.9 Type 2 diabetes mellitus without complications; F41.9 Anxiety disorder, unspecified; Z79.84 Long term (current) use of oral hypoglycemic drugs; Z79.899 Other long term (current) drug therapy; E66.9 Obesity, unspecified; Z68.35 Body mass index [BMI] 35.0-35.9, adult
CPT/HCPCS: 64718; 82948; A4565; A9270; J0690; J2250; J2405; J2704; J3010; J7120

== ENCOUNTER 2022-09-14 11:48 | Outpatient (CLI) | payer BC, SELFPAY ==
[2022-09-14 13:50] LABS: Basophils Percent Auto 0.4 % (0.2-1.2); Eosinophils Absolute Auto 0.5 K/mm3 (0-0.3); Eosinophils Percent Auto 6.4 % (0-4.4); Hematocrit 36.2 % (42.0-52.0); Hemoglobin 12.4 g/dL (14.0-18.0); Immature Granulocyte Absolute 0.02 K/mm3 (0.00-0.031); Immature Granulocyte Percent A 0.2 % (0-0.5); Lymphocytes Absolute Auto 2.18 K/mm3 (0.9-3.2); Lymphocytes Percent Auto 26.2 % (18.3-44.2); Mean Corpuscular HGB Conc 34.3 g/dl (32-36); Mean Corpuscular Volume 90.5 fl (80-100); Mean Platelet Volume 9.3 fl (7.4-10.4); Monocytes Absolute Auto 0.7 K/mm3 (0.1-0.6); Monocytes Percent Auto 8.4 % (2.6-8.5); Neutrophils Absolute Auto 4.9 K/mm3 (1.3-6.7); Neutrophils Percent Auto 58.4 % (45.5-73.1); Platelet Count Result 332 k/mm3 (150-375); Red Cell Distribution Width 13.1 % (11.5-14.5); White Blood Count 8.3 K/mm3 (4.5-10.0)
[2022-09-14 13:54] LABS: Urine Cotinine NEGATIVE
[2022-09-14 13:59] LABS: Hemoglobin A1C 6.2 % (<5.7)
[2022-09-14 14:04] LABS: INR 1.1; Prothrombin Time 13.6 Seconds (11.1-14.7)
[2022-09-14 14:05] LABS: Partial Thromboplastin Time 25.9 SECONDS (22.3-36.8)
[2022-09-14 14:27] LABS: Appearance Urine Clear (Clear); Bilirubin Urine Negative (Negative); Blood Urine Negative (Negative); Color Urine Yellow (Yellow); Glucose Urine UA Negative (Negative); Ketones Urine Negative (Negative); Leukocyte Esterase Ur Negative LEU/UL (Negative); Nitrate Urine Negative (Negative); Protein Urine Negative (Negative); Specific Grav Ur 1.015 (1.001-1.035); Urobilinogen Urine 0.2 mg/dL (<2.0); pH Urine 6.5 (5.0-9.0)
[2022-09-14 14:32] LABS: Albumin Level 4.5 g/dL (3.5-5.1); Anion Gap 7 mmol/L (8-16); Blood Urea Nitrogen 19 mg/dL (9-20); Calcium 9.3 mg/dL (8.4-10.2); Carbon Dioxide 31 mmol/L (22-30); Chloride 93 mmol/L (98-107); Estimated Glomerular Filt Rate > 60; Glucose 87 mg/dL (65-110); Potassium 3.8 mmol/L (3.4-5.0); Sodium 131 mmol/L (137-145)
[2022-09-14 14:34] LABS: Add Urine Microscopic? NO
== END 2022-09-14 11:49 | disposition home or self-care (01) ==
PROVIDERS: Visit Provider Orthopaedic Surgery
DX: M16.0 Bilateral primary osteoarthritis of hip (principal); E11.9 Type 2 diabetes mellitus without complications; I10 Essential (primary) hypertension; Z01.818 Encounter for other preprocedural examination
CPT/HCPCS: 80048; 80307; 81003; 82040; 83036; 85025; 85610; 85730; 87081

== ENCOUNTER 2022-10-04 18:39 | Observation (INO) | payer BC, SELFPAY ==
[2022-09-14 12:01] VITALS: BMI 34.8
--- NOTE | 2022-09-14 12:19 | PC.NURSE ---
Report to the Outpatient Waiting Room, entrance under the green pavilion located off [facility], at time __0900 on date ___10/03/22____. Planned Procedure Time: __1100 . Time changes happen often and if your time is changed the preop area will call you the afternoon before. - You and your visitor will be asked to self-screen and do not enter if you have any COVID symptoms. - Only one visitor is requested with a max of two and NO children visitors are allowed at this time. - The patient visitor may be requested to leave or wait in car when not with patient due to distancing restrictions. - A mask is optional within the hospital. Patients may have clear liquids (water, carbonated beverages, clear teas, apple juice) until 3 hours prior to surgery with a maximum of 20 ounces. - No food from midnight until time of surgery - Infants may have breast milk until 4 hours before surgery, infant formula 6 hours prior to surgery. - Children will be allowed to drink immediately following surgery. If applicable, please bring a bottle or sippy cup to assist with drinking. Juice, water, soda, and popsicles are readily available. For infants on formula, please bring formula the day of surgery. Pacifiers are allowed. Take the following medications with a SIP of water the morning of surgery: NONE Medications to discontinue per physician __IBUPROFEN PER DR JENKINS Please no make-up, nail macedonian, hairspray, perfume, deodorant, or body powder the day of surgery. No jewelry (including any body piercings) or valuables the day of surgery, leave them at home. Please take a shower or bath the night before, or the morning of, surgery with an antibacterial soap. Wear comfortable, loose fitting clothing. Children are encouraged to wear pajamas. - Jewelry must be removed prior to entering the operating room. Rings and piercings that are not removed may be cut off. - The hospital will not accept responsibility for valuables. - Please leave all valuables, including medications, at home the day of surgery. If you are going home after surgery, a licensed route salesman and driver must drive you home. - NO public transportation without another adult if you receive anesthesia. - We recommend that an adult stay with you for 24 hours following discharge. - We also recommend that you do not drive, make important decision, drink alcoholic beverages, or take any drugs that were not prescribed by your health care provider for at least 24 hours after your discharge time. Follow any additional instructions given to you from your surgeon. If you or anyone in your household have experienced Covid symptoms in the past week, please notify your surgeon or the nurse liaison at the phone number below for possible testing. VERBAL AND WRITTEN instructions given to __PATIENT and asked if any additional questions and then verbalized understanding. Patient advised to call surgeon office or pre surgery nurse liaison [phone] if any additional questions.
[2022-09-14 12:46] VITALS: BP 102/68; PULSE 70; RESP 18; TEMP 36.6; O2SAT 100
[2022-10-03] VITALS (19 sets, daily range): BP systolic 81–128; BP diastolic 44–74; PULSE 59–86; RESP 13–18; TEMP 36.2–36.8; O2SAT 96–100
--- NOTE | 2022-10-03 07:24 | WPDHPUPDATE1 ---
History and Physical Update Update Date/Time: 10/03/22 07:24 History and Physical has been reviewed, including an updated exam of the patient. There are NO changes in the patient's condition. Risks, benefits, and alternatives have been discussed and questions answered. Patient agrees to proceed with procedure.
[2022-10-03] MEDS: ACETAMINOPHEN 500 MG TABLET 1000 MG PO (09:10)
--- NOTE | 2022-10-03 09:56 | WPDANESEPPF ---
Anes - Initial Pre Proc Eval Procedure: Operation Date: 10/03/22 11:00 Proposed Procedures p Left Total Hip Arthroplasty - Grey Cruz MD Date/Time: 10/03/22 09:56 Surgeon: Grey Cruz MD Pre Op Diagnosis: left hip DJD Patient Data Age: 57 Gender: M Height: 1.78 m Weight: 109 kg Last Vital Signs Temp 36.4 C 10/03/22 09:41 Pulse 72 10/03/22 09:41 Resp 16 10/03/22 09:41 BP 104/61 10/03/22 09:41 Pulse Ox 99 10/03/22 09:41 O2 Del Method Room Air 10/03/22 09:41 Allergies Allergy/AdvReac Type Severity Reaction Status Date / Time No Known Allergies Allergy Verified 10/03/22 09:05 Home Medications Medication Instructions Recorded Confirmed Type escitalopram oxalate 20 mg tablet 20 mg PO HS 05/22/21 10/03/22 History metformin 500 mg tablet 500 mg PO BID 05/22/21 10/03/22 History acetaminophen 650 mg 1,300 mg PO DAILY PRN Pain 03/27/22 10/03/22 History tablet,extended release (Tylenol Arthritis Pain) atorvastatin 20 mg tablet 20 mg PO HS 03/27/22 10/03/22 History fluticasone propionate 50 1 spray intranasal PRN PRN Allergy 03/27/22 09/14/22 History mcg/actuation nasal Symptoms spray,suspension (Flonase Allergy Relief) ibuprofen 600 mg tablet 600 mg PO PRN PRN Pain 03/27/22 10/03/22 History semaglutide 0.25 mg or 0.5 mg (2 0.5 mg subcut WEEKLY 03/27/22 10/03/22 History mg/1.5 mL) subcutaneous pen injector (Ozempic) chlorthalidone 25 mg tablet 50 mg PO DAILY 04/09/22 10/03/22 History lisinopril 20 mg tablet 40 mg PO DAILY 04/09/22 10/03/22 History chlorhexidine gluconate 4 % 1 applic topical ONCE #237 mL 09/25/22 10/03/22 Rx topical liquid (Hibiclens) Patient hx anesthesia problems: none Family hx anesthesia problems: none Results Review: All pre-operative results and documents have been reviewed as part of the pre-operative evaluation. [facility] Past Medical History Medical History Anxiety Arthritis Degenerative joint disease (DJD) of hip Diabetes pt states a1c is under 7 Hypertension Obesity RAQUEL (obstructive sleep apnea) Osteoarthritis of hips, bilateral Pain in right hip Wears glasses Surgical History Surgical History History of cholecystectomy History of hernia repair History of melanoma excision History of tonsillectomy S/P total hip arthroplasty Family History Family History Mother Asthma Hypertension Depression Cerebrovascular accident Social History Social History Smoking status: Never smoker Additional smoking assessment comments: DENIES ANY FORM OF TOBACCO USE Alcohol intake: current Drinks per week: 1 Alcohol use details: VERY RARE Substance use: never Substance use type: does not use Living arrangements: with family Occupation/Education: occupation Additional occupation/education comments: [employer] care concerns: No Anes - Eval Final PreProcedure Day of Procedure 10/03/22 09:56 Patient weight: obese Heart: regular rate and rhythm Lungs: clear to auscultation Airway: Mallampati scale class II Neurological: alert and oriented Last oral intake: >/= 8 hours ASA classification: III Emergent: no Anesthesia type and monitoring: general ETT and standard monitoring Results Review: All pre-operative results and documents have been reviewed as part of the pre-operative evaluation. Informed Consent: The patient's anesthetic plan and its attendant risks and benefits were discussed with the patient/family/POA. Questions were solicited and answers provided to the satisfaction of the patient/family/POA.
[2022-10-03] MEDS: TRANEXAMIC ACID 1,000MG/ISO100 1,000 MG/100 ML BAG 200 MG IVPB (10:05)
[2022-10-03] MEDS: ceFAZolin 2 GM/D5W 50 ML 2 GM/50 ML BAG IVPB ×2 (10:47→17:38)
[2022-10-03] MEDS: TRANEXAMIC ACID 1,000 MG/10 ML AMPUL 1000 MG IV PUSH (13:12)
--- NOTE | 2022-10-03 14:13 | P.OP_ITS ---
Procedure Note - Detailed Date of Procedure 10/03/22 Pre-op Diagnosis left hip DJD Post-op Diagnosis Same Procedure Performed L HEATH Surgeon Grey Cruz MD Anesthesia General Description of Procedure THE PATIENT WAS TAKEN TO THE OPERATING ROOM IN STABLE CONDITION AND WAS PLACED IN THE LATERAL DECUBITUS AND THE LEFT LOWER EXTREMITY WAS PREPPED AND DRAPED IN THE STERILE FASHION. INCISION WAS MADE IN THE POSTERIOR LATERAL SIDE OF THE HIP, DOWN TO THE FASCIA LAYER. THE FASCIA WAS INCISED. THE HIP WAS EXPOSED. THE SHORT EXTERNAL ROTATORS WERE EXPOSED. THE SCIATIC NERVE WAS IDENTIFIED. INCISION WAS MADE THROUGH THE SHORT EXTERNAL ROTATORS AND THE CAPSULE OF THE HIP JOINT. THE HIP WAS DISLOCATED. AN OSTEOTOMY WAS MADE TO THE FEMORAL NECK ABOUT 1 CM PROXIMAL TO THE LESSER TROCHANTER. THE ACETABULUM WAS EXPOSED. THERE WAS SEVERE DJD SEEN. BEGINNING WITH A 44 REAMER THE ACETABULUM WAS REAMED TO 57 MM. A 57 MM TRIAL WAS PLACED IN 35 DEG OF ABDUCTION AND ANTEVERSION WAS IN ALIGNMENT WITH THE TRANS ACETABULAR LIGAMENT. THE FIT WAS EXCELLENT. THE TRIAL WAS REMOVED. A 58 MM BIOMET G7 COMPONENT WAS THEN TAPPED IN TO PLACE IN 35 DEG OF ABDUCTION AND ANTEVERSION IN ALIGNMENT WITH THE TRANSVERSE ACETABULAR LIGAMENT. THE FIT WAS EXCELLENT. THE ACETABULAR LINER WAS PLACED AND CHECKED FOR STABILITY. NEXT THE FEMUR WAS PREPARED WITH INITIAL CANAL FINDER THEN SEQUENTIAL BROACHING WITH A TAPERLOC HIP SYSTEM, UNTIL AN 11 BROACH FIT WELL IN 15 OF ANTEVERSION. A 0 HIGH OFFSET NECK WITH 36 MM HEAD TRIAL WAS PLACED. THE SHUCK TEST WAS EXCELLENT AND THE STABILITY IN FLEXION AND ROTATION WAS EXCELLENT. LEG LENGTHS WERE GROSSLY EQUAL. TRIALS WERE REMOVED. A BIOMET TAPERLOC 11 STEM WAS PLACED WITH A HIGH OFFSET NECK. THE FIT WAS EXCELLENT IN 15 DEG OF ANTEVERSION. A 0 CERAMIC 36 MM FEMORAL HEAD WAS PLACED. THE HIP WAS TRIALED AND THE STABILITY WAS EXCELLENT WERE THE LEG LENGTHS AND THE SHUCK TEST. THE WOUND WAS IRRIGATED WITH STERILE BETADINE AND WATER FOR 3 MIN. THEN WASHED AGAIN. THE CAPSULE AND THE EXTERNAL ROTATORS WERE APPROXIMATED WITH NUMBER 1 VICRYL. THE FASCIA WITH No 2 QUIL AND THE SUB CUTANEOUS LAYER WITH 2-0 ABSORBABLE SUTURE WITH A RUNNING 3-0 SUBCUTICULAR LAYER WELL. DERMABOND WAS PLACED AND STERILE DRESSING WAS APPLIED. PATIENT WAS PLACED BACK ON TO THE S UPINE POSITION AND WAS EXTUBATED Estimated Blood Loss -600.0 Complications No immediate complications Condition Stable Disposition PACU
[2022-10-03] MEDS: fentaNYL CITRATE INJ (*CRX) 100 MCG/2 ML VIAL 25 MCG IV PUSH ×8 (14:25→16:19)
[2022-10-03] MEDS: diazePAM INJ (*CRX) 10 MG/2 ML SYRINGE 5 MG IV PUSH (14:35)
[2022-10-03] MEDS: KETOROLAC 30 MG/ML VIAL (*BKC) IV PUSH (14:40)
[2022-10-03] MEDS: LACTATED RINGERS 1,000 ML 30 ML IV CONT ×2 (14:42→14:43)
--- NOTE | 2022-10-03 14:45 | SUR.PHASEI ---
1432: Dr. Arboleda at bedside. informed md about patient pain level 03/11. new orders for medication ordered.
[2022-10-03 15:23] LABS: Glucose Point of Care 140 mg/dl (65-105)
[2022-10-03] MEDS: DEXTROSE 5%/0.45% SOD CHL 1,000 ML 80 ML IV CONT (17:14)
[2022-10-03] MEDS: HYDROcodone/acetaminophen (*CRX) 7.5-325 MG TABLET 1 TAB PO (17:14)
[2022-10-03 17:33] LABS: Glucose Point of Care 136 mg/dl (65-105)
[2022-10-03] MEDS: SENNA/DOCUSATE SODIUM TABLET 2 TAB PO (17:38)
[2022-10-03] MEDS: metFORMIN HCL 500 MG TABLET PO (17:38)
[2022-10-03] MEDS: KETOROLAC 15 MG/ML VIAL (*BKC) IV PUSH (18:25)
[2022-10-03] MEDS: ATORVASTATIN 20 MG TABLET PO (20:07)
[2022-10-03] MEDS: ESCITALOPRAM OXALATE 10 MG TABLET 20 MG PO (20:07)
[2022-10-03] MEDS: ASPIRIN 325 MG ENTERIC TABLET PO (20:07)
[2022-10-03] MEDS: FAMOTIDINE 20 MG TABLET PO (20:07)
[2022-10-03 21:01] LABS: Glucose Point of Care 167 mg/dl (65-105)
--- NOTE | ~2022-10-04 | XR_ITS ---
EXAMINATION: XR hip LT 1V DATE: 10/03/2022 14:21 INDICATION: Left hip arthroplasty. Postop. TECHNIQUE: A single view of left hip was obtained. COMPARISON: Left hip radiographs 08/02/2022 FINDINGS: There is a total left hip arthroplasty in near-anatomic alignment. Partially visualized is a total right hip arthroplasty. No fracture. IMPRESSION: 1. Total left hip arthroplasty in near-anatomic alignment. Reviewed, dictated and finalized at location A. [employer]
[2022-10-04] MEDS: KETOROLAC 15 MG/ML VIAL (*BKC) IV PUSH ×4 (00:08→18:11)
[2022-10-04 00:35] VITALS: BP 123/59; PULSE 84; RESP 18; TEMP 36.7; O2SAT 99
[2022-10-04] MEDS: ceFAZolin 2 GM/D5W 50 ML 2 GM/50 ML BAG IVPB ×2 (02:01→09:30)
[2022-10-04] MEDS: ONDANSETRON INJ 4 MG/2 ML VIAL IV PUSH ×3 (03:37→16:53)
[2022-10-04 05:05] VITALS: BP 136/83; PULSE 86; RESP 18; TEMP 37.1; O2SAT 98
[2022-10-04 05:40] LABS: Basophils Percent Auto 0.2 % (0.2-1.2); Eosinophils Percent Auto 0.4 % (0-4.4); Hemoglobin 9.6 g/dL (14.0-18.0); Immature Granulocyte Absolute 0.04 K/mm3 (0.00-0.031); Immature Granulocyte Percent A 0.4 % (0-0.5); Lymphocytes Absolute Auto 1.43 K/mm3 (0.9-3.2); Lymphocytes Percent Auto 13.6 % (18.3-44.2); Mean Corpuscular HGB Conc 34.3 g/dl (32-36); Mean Corpuscular Hemoglobin 31.4 pg (26-34); Mean Corpuscular Volume 91.5 fl (80-100); Mean Platelet Volume 9.3 fl (7.4-10.4); Monocytes Percent Auto 9.4 % (2.6-8.5); Platelet Count Result 259 k/mm3 (150-375); Red Blood Count 3.06 M/mm3 (4.6-6.20); White Blood Count 10.5 K/mm3 (4.5-10.0)
[2022-10-04 05:57] LABS: Anion Gap 9 mmol/L (8-16); Blood Urea Nitrogen 20 mg/dL (9-20); Calcium 7.8 mg/dL (8.4-10.2); Carbon Dioxide 25 mmol/L (22-30); Chloride 96 mmol/L (98-107); Estimated CRCL calculation 70 ml/min; Estimated Glomerular Filt Rate 57; Glucose 145 mg/dL (65-110); Potassium 3.7 mmol/L (3.4-5.0); Sodium 130 mmol/L (137-145)
[2022-10-04 08:56] LABS: Glucose Point of Care 161 mg/dl (65-105)
[2022-10-04] MEDS: FAMOTIDINE 20 MG TABLET PO ×2 (09:29→20:39)
[2022-10-04] MEDS: lisinopriL 20 MG TABLET 40 MG PO (09:30)
[2022-10-04] MEDS: metFORMIN HCL 500 MG TABLET PO ×2 (09:30→16:53)
[2022-10-04] MEDS: polyethylene glycoL 3350 17 GM POWD.PACK PO (09:30)
[2022-10-04] MEDS: ASPIRIN 325 MG ENTERIC TABLET PO ×2 (09:30→20:39)
[2022-10-04] MEDS: CHLORTHALIDONE 25 MG TABLET 50 MG PO (09:30)
[2022-10-04] MEDS: SENNA/DOCUSATE SODIUM TABLET 2 TAB PO ×2 (09:30→16:53)
--- NOTE | 2022-10-04 09:57 | WPDANESPN ---
Anes - Prog Note Post-Op Date/Time: 10/04/22 09:57 Cardiovascular status: normal Respiratory status: normal Airway patency: baseline Mental status: baseline Post-Op hydration status: normal Vital Signs: Last Vital Signs Temp 37.1 C 10/04/22 05:05 Pulse 86 10/04/22 05:05 Resp 18 10/04/22 05:05 BP 136/83 10/04/22 05:05 Pulse Ox 98 10/04/22 05:05 O2 Del Method Room Air 10/04/22 07:59 O2 Flow Rate 3 10/03/22 16:30 Pain Score (VAS): 0 I/O: Intake & Output 10/03/22 10/04/22 10/04/22 23:59 07:59 15:59 Intake Total 1160 1550 Balance 1160 1550 Laboratory Tests 10/04/22 05:22 10/04/22 05:22 10/03/22 10/03/22 10/03/22 09:28 14:07 17:23 WBC RBC Hgb Hct MCV MCH MCHC RDW Plt Count MPV Immature Gran % (Auto) Neut % (Auto) Lymph % (Auto) Latimer % (Auto) Eos % (Auto) Baso % (Auto) Lymph # (Auto) Latimer # (Auto) Eos # (Auto) Baso # (Auto) Abs Immat Gran (auto) Absolute Neuts (auto) Absolute Nucleated RBC Nucleated RBC % Sodium Potassium Chloride Carbon Dioxide Anion Gap BUN Creatinine Estim Creat Clear Calc Estimated GFR Glucose POC Capillary Glucose 140 H 136 H Calcium Blood Type O Negative Antibody Screen Negative 10/03/22 10/04/22 10/04/22 20:08 05:22 05:22 WBC 10.5 H RBC 3.06 L Hgb 9.6 L Hct 28.0 L MCV 91.5 MCH 31.4 MCHC 34.3 RDW 13.0 Plt Count 259 MPV 9.3 Immature Gran % (Auto) 0.4 Neut % (Auto) 76.0 H Lymph % (Auto) 13.6 L Latimer % (Auto) 9.4 H Eos % (Auto) 0.4 Baso % (Auto) 0.2 Lymph # (Auto) 1.43 Latimer # (Auto) 1.0 H Eos # (Auto) 0.0 Baso # (Auto) 0.0 Abs Immat Gran (auto) 0.04 H Absolute Neuts (auto) 8.0 H Absolute Nucleated RBC 0.0 Nucleated RBC % 0.0 Sodium 130 L Potassium 3.7 Chloride 96 L Carbon Dioxide 25 Anion Gap 9 BUN 20 Creatinine 1.30 Estim Creat Clear Calc 70 Estimated GFR 57 L Glucose 145 H POC Capillary Glucose 167 H Calcium 7.8 L Blood Type Antibody Screen 10/04/22 08:52 WBC RBC Hgb Hct MCV MCH MCHC RDW Plt Count MPV Immature Gran % (Auto) Neut % (Auto) Lymph % (Auto) Latimer % (Auto) Eos % (Auto) Baso % (Auto) Lymph # (Auto) Latimer # (Auto) Eos # (Auto) Baso # (Auto) Abs Immat Gran (auto) Absolute Neuts (auto) Absolute Nucleated RBC Nucleated RBC % Sodium Potassium Chloride Carbon Dioxide Anion Gap BUN Creatinine Estim Creat Clear Calc Estimated GFR Glucose POC Capillary Glucose 161 H Calcium Blood Type Antibody Screen Post-procedural complaints: none Patient Feedback: Patient satisfied with anesthetic care.
[2022-10-04 10:22] VITALS: BP 114/66; PULSE 80; RESP 18; TEMP 36.4; O2SAT 99
[2022-10-04 12:17] LABS: Glucose Point of Care 146 mg/dl (65-105)
--- NOTE | 2022-10-04 13:17 | PM.PNORT ---
Progress Note: A&P Assessment and Plan (1) S/P total hip arthroplasty: Qualifiers: Laterality: left Qualified Code(s): Z96.642 - Presence of left artificial hip joint Code(s): Z96.649 - Presence of unspecified artificial hip joint Status: Acute Assessment and Plan: POD #1 : Left HEATH Continue PT/OT. WBAT. Walker. HIGH FALL RISK. Continue pain control. Ice Hip. Protect skin. DVT prophylaxis with Aspirin. SCDs. Incentive Spirometry Use reviewed. Monitor Dressing. Change prior to discharge. Bowel Regimen. Dispo: Home with Home Health pending progress with PT/OT and improvement in nausea/vomiting. (2) Post-operative nausea and vomiting: Code(s): R11.2 - Nausea with vomiting, unspecified; Z98.890 - Other specified postprocedural states Status: Acute Assessment and Plan: Antiemetics PRN. Push fluids. Subjective Subjective Date/Time Seen: 10/04/22 13:17 Post Op day: 1 Interval history: POD #1: Left HEATH Review of Systems Constitutional: Constitutional: Denies chills, Denies fatigue, Denies fever(s), Denies night sweats and Denies weakness Cardiovascular: Cardiovascular: Denies chest pain, Denies lightheadedness, Denies palpitations and Denies dyspnea Respiratory: Respiratory: Denies cough, Denies dyspnea and Denies wheezing Gastrointestinal: Gastrointestinal: Denies abdominal pain, Denies diarrhea, Reports nausea and Reports vomiting Musculoskeletal: Musculoskeletal: Reports arthralgias (left hip ), Reports joint swelling (left hip ) and Denies numbness Neurologic: Denies numbness and Denies weakness Endocrine: Endocrine: Denies fatigue and Denies palpitations Allergic/Immunologic: Allergic/Immunologic: Denies wheezing Exam Const: General: comfortable and no acute distress Orientation/consciousness: patient oriented x3 Limitations: no limitations Resp: Effort & Inspection: normal respiratory effort Cardio: Rate: regular rate Rhythm: regular rhythm GI: Inspection: non-distended Skin: General skin exam: normal color and wounds noted (incision left hip C/D/I ) Wounds: wounds noted (incision left hip C/D/I ) Neuro: General: patient oriented x3 Extrem: Left lower extremity: hip/thigh Details: tenderness Location: of the hip Location: laterally and anteriorly, swelling (thigh soft ) Location: of the hip (lateral. ), abnormal ROM (limitations with internal/external rotation and flexion/extension due to recent surgical intervention ) and other (incision lateral hip c/d/i. ), knee Details: normal to inspection and normal ROM; no tenderness and no swelling, lower leg (Negative Ronna's Sign ) Details: no edema, ankle (+ankle dorsiflexion/plantarflexion ) Details: normal to inspection, no edema and normal ROM; no tenderness, no swelling and no warmth and foot Details: normal capillary refill, toes with normal ROM, vascular exam Details: dorsalis pedis pulse present and motor-sensory exam light-touch normal in all toes; no tenderness, no ecchymosis and no crepitus Psych: Mental Status: mental status grossly normal Affect: normal affect Objective Data Vital Signs Vital Signs: Vital Signs - 24 hr 10/03/22 14:00 10/03/22 14:15 10/03/22 14:30 Temperature 36.8 C Pulse Rate 59 L 77 70 Respiratory Rate 16 16 16 Blood Pressure 81/44 L 101/61 104/65 Pulse Oximetry 98 98 100 Oxygen Delivery Simple Face Mask Room Air Room Air Oxygen Flow Rate 8 10/03/22 14:45 10/03/22 15:00 10/03/22 15:15 Temperature Pulse Rate 71 70 68 Respiratory Rate 14 14 13 Blood Pressure 109/59 L 107/64 108/65 Pulse Oximetry 96 96 100 Oxygen Delivery Nasal Cannula Nasal Cannula Nasal Cannula Oxygen Flow Rate 4 4 4 10/03/22 15:30 10/03/22 15:45 10/03/22 16:00 Temperature Pulse Rate 76 67 64 Respiratory Rate 18 13 13 Blood Pressure 113/68 119/66 109/65 Pulse Oximetry 100 100 100 Oxygen Delivery Nasal Cannula Nasal Cannula Nasal Cannula Oxygen Flow Rate 3 3 3
[2022-10-04 14:22] VITALS: BP 114/66; PULSE 83; RESP 18; TEMP 36.6; O2SAT 100
[2022-10-04 17:03] LABS: Glucose Point of Care 109 mg/dl (65-105)
[2022-10-04] MEDS: ESCITALOPRAM OXALATE 10 MG TABLET 20 MG PO (20:39)
[2022-10-04] MEDS: ATORVASTATIN 20 MG TABLET PO (20:39)
[2022-10-04 21:00] LABS: Glucose Point of Care 133 mg/dl (65-105)
[2022-10-04 22:00] VITALS: PULSE 83; RESP 18; O2SAT 100
[2022-10-05] MEDS: HYDROcodone/acetaminophen (*CRX) 7.5-325 MG TABLET 1 TAB PO ×3 (00:08→12:18)
[2022-10-05 06:26] VITALS: BP 90/50; PULSE 83; RESP 16; TEMP 36.6; O2SAT 98
[2022-10-05 08:34] LABS: Glucose Point of Care 139 mg/dl (65-105)
[2022-10-05] MEDS: FAMOTIDINE 20 MG TABLET PO (09:12)
[2022-10-05] MEDS: metFORMIN HCL 500 MG TABLET PO (09:12)
[2022-10-05] MEDS: lisinopriL 20 MG TABLET 40 MG PO (09:13)
[2022-10-05] MEDS: CHLORTHALIDONE 25 MG TABLET 50 MG PO (09:13)
[2022-10-05] MEDS: ASPIRIN 325 MG ENTERIC TABLET PO (09:13)
--- NOTE | 2022-10-05 09:45 | PM.PNORT ---
Progress Note: A&P Assessment and Plan (1) S/P total hip arthroplasty: Qualifiers: Laterality: left Qualified Code(s): Z96.642 - Presence of left artificial hip joint Code(s): Z96.649 - Presence of unspecified artificial hip joint Status: Acute Assessment and Plan: POD #2: Left HEATH Continue PT/OT. WBAT. Walker. HIGH FALL RISK. Continue pain control. Ice Hip. Protect skin. DVT prophylaxis with Aspirin. SCDs. Incentive Spirometry Use reviewed. Monitor Dressing. Change prior to discharge. Bowel Regimen. Dispo: Home with Home Health (2) Post-operative nausea and vomiting: Code(s): R11.2 - Nausea with vomiting, unspecified; Z98.890 - Other specified postprocedural states Status: Acute Assessment and Plan: Resolved Subjective Subjective Date/Time Seen: 10/05/22 09:45 Post Op day: 1 Interval history: POD #2: Left HEATH Significant improvement in overall pain. Tolerating diet today. No vomiting or nausea. Ready for d/c home. Review of Systems Constitutional: Constitutional: Denies chills, Denies fatigue, Denies fever(s), Denies night sweats and Denies weakness Cardiovascular: Cardiovascular: Denies chest pain, Denies lightheadedness, Denies palpitations and Denies dyspnea Respiratory: Respiratory: Denies cough, Denies dyspnea and Denies wheezing Gastrointestinal: Gastrointestinal: Denies abdominal pain, Denies diarrhea, Denies nausea and Denies vomiting Musculoskeletal: Musculoskeletal: Reports arthralgias (left hip ), Reports joint swelling (left hip ) and Denies numbness Neurologic: Denies numbness and Denies weakness Endocrine: Endocrine: Denies fatigue and Denies palpitations Allergic/Immunologic: Allergic/Immunologic: Denies wheezing Objective Data Vital Signs Vital Signs: Vital Signs - 24 hr 10/04/22 10:22 10/04/22 14:22 10/04/22 22:00 Temperature 36.4 C 36.6 C Pulse Rate 80 83 83 Respiratory Rate 18 18 18 Blood Pressure 114/66 114/66 Pulse Oximetry 99 100 100 Oxygen Delivery Room Air 10/05/22 06:26 Temperature 36.6 C Pulse Rate 83 Respiratory Rate 16 Blood Pressure 90/50 L Pulse Oximetry 98 Oxygen Delivery Intake/Output Intake/Output: Intake & Output 01/31/23 10/03/22 10/04/22 10/05/22 23:59 23:59 23:59 23:59 Intake Total 1310 1550 Balance 1310 1550 Meds/Results Medications: Active Medications Generic Name Dose Route Start Last Admin Trade Name Freq PRN Reason Stop Dose Admin Acetaminophen 650 mg 10/03/22 16:37 Acetaminophen 325 Mg Tablet PO Q6H PRN Mild Pain (1-3) or Fever Hydrocodone Bitart/Acetaminophen 1 tab 10/03/22 16:37 10/05/22 09:12 Hydrocodone/Acetaminophen (*Crx) 7.5-325 Mg Tablet PO 1 tab Q3H PRN Administration Pain Rated 4-6 Aspirin 325 mg 10/03/22 21:00 10/05/22 09:13 Aspirin 325 Mg Enteric Tablet PO 325 mg Q12HR DEDE Administration Atorvastatin Calcium 20 mg 10/03/22 21:00 10/04/22 20:39 Atorvastatin 20 Mg Tablet PO 20 mg HS DEDE Administration Chlorthalidone 50 mg 10/04/22 09:00 10/05/22 09:13 Chlorthalidone 25 Mg Tablet PO 50 mg DAILY DEDE Administration Diazepam 5 mg 10/03/22 16:37 Diazepam (*Crx) 5 Mg Tablet PO Q6H PRN Anxiety/Muscle Spasm Escitalopram Oxalate 20 mg 10/03/22 21:00 10/04/22 20:39 Escitalopram Oxalate 10 Mg Tablet PO 20 mg HS DEDE Administration Famotidine 20 mg 10/03/22 21:00 10/05/22 09:12 Famotidine 20 Mg Tablet PO 20 mg Q12HR DEDE Administration Lisinopril 40 mg 10/04/22 09:00 10/05/22 09:13 Lisinopril 20 Mg Tablet PO 40 mg DAILY DEDE Administration Magnesium Hydroxide 30 ml 10/03/22 16:37 Magnesium Hydroxide Susp 30 Ml Udc PO BID PRN Constipation Metformin HCl 500 mg 10/03/22 17:00 10/05/22 09:12 Metformin Hcl 500 Mg Tablet PO 500 mg BIDWM DEDE Administration Morphine Sulfate 3 mg 10/03/22 16:37 Morphine Sul
--- NOTE | 2022-10-05 09:49 | PM.DS ---
DS: Admitting Diagnosis Discharge Date 10/05/22 Admitting Diagnosis Left Hip DJD DS: Discharge Diagnosis Discharge Diagnosis (1) S/P total hip arthroplasty: Qualifiers: Laterality: left Qualified Code(s): Z96.642 - Presence of left artificial hip joint Code(s): Z96.649 - Presence of unspecified artificial hip joint Status: Acute Assessment and Plan: POD #2: Left HEATH Continue PT/OT. WBAT. Walker. HIGH FALL RISK. Continue pain control. Ice Hip. Protect skin. DVT prophylaxis with Aspirin. SCDs. Incentive Spirometry Use reviewed. Monitor Dressing. Change prior to discharge. Bowel Regimen. Dispo: Home with Home Health (2) Post-operative nausea and vomiting: Code(s): R11.2 - Nausea with vomiting, unspecified; Z98.890 - Other specified postprocedural states Status: Acute Assessment and Plan: Resolved DS: Summary Hospital Course Reason for hospitalization: Left HEATH Hospital Course: 57 year old female admitted s/p left HEATH for postoperative medical management, pain control and mobilization with PT/OT. Patient progressed well with PT/OT. Pain and vitals stable throughout. Patient had difficulty with nausea and vomiting on POD #1. Improvement on POD #2. He has been cleared to be discharged home with home health at this time. Follow up planned for 3 weeks in the outpatient orthopedic clinic with Dr. Cruz. Status at Discharge Functional status at discharge: uses cane/walker Overall status at discharge: patient is progressing back to baseline Time Spent with Patient Time attestation: Total time spent providing and/or coordinating discharge services: Exam Const: General: comfortable and no acute distress Orientation/consciousness: patient oriented x3 Limitations: no limitations Resp: Effort & Inspection: normal respiratory effort Cardio: Rate: regular rate Rhythm: regular rhythm GI: Inspection: non-distended Skin: General skin exam: normal color and wounds noted (incision left hip C/D/I ) Wounds: wounds noted (incision left hip C/D/I ) Neuro: General: patient oriented x3 Extrem: Left lower extremity: hip/thigh Details: tenderness Location: of the hip Location: laterally and anteriorly, swelling (thigh soft ) Location: of the hip (lateral. ), abnormal ROM (limitations with internal/external rotation and flexion/extension due to recent surgical intervention ) and other (incision lateral hip c/d/i. ), knee Details: normal to inspection and normal ROM; no tenderness and no swelling, lower leg (Negative Ronna's Sign ) Details: no edema, ankle (+ankle dorsiflexion/plantarflexion ) Details: normal to inspection, no edema and normal ROM; no tenderness, no swelling and no warmth and foot Details: normal capillary refill, toes with normal ROM, vascular exam Details: dorsalis pedis pulse present and motor-sensory exam light-touch normal in all toes; no tenderness, no ecchymosis and no crepitus Psych: Mental Status: mental status grossly normal Affect: normal affect DS: Data Data Completed and Pending Labs on day of discharge: Labs from last 24 hours 10/05/22 10/04/22 10/04/22 08:24 20:55 16:49 POC Capillary Glucose 139 H 133 H 109 H 10/04/22 12:01 POC Capillary Glucose 146 H Discharge Plan Discharge Attending physician on discharge: Grey Cruz Discharging Clinician: Edith Villa Patient Disposition: Home Health Service Activity: may shower, no driving and follow weight bearing status Diet: as tolerated Wound Care Instructions: follow printed instructions Discharge Instructions: Post Op Total Hip Replacement Instructions Dr. Grey Cruz [phone] Your dressing will be changed prior to your discharge. You will be sent home with one additional dressing to be changed on post op day 7 by the home health RN. You may remove the dressing on post op day 14. Your incision was closed with dermabond, allow the dermabond to
[2022-10-05 12:22] LABS: Glucose Point of Care 127 mg/dl (65-105)
--- NOTE | 2022-10-05 12:41 | PC.NURSE ---
RN changed left hip dressing prior to discharge. pt sent home with an additional dressing for home health to change POD 7.
== END 2022-10-05 13:30 | disposition home health service (06) ==
LOC: ANHSURGERY 18:42 → ANH3MED 18:42
PROVIDERS: Admitting Provider Orthopaedic Surgery; Visit Provider Orthopaedic Surgery
PROC: (CPT 27130; principal; 2022-10-03 11:00)
DX: M16.12 Unilateral primary osteoarthritis, left hip (principal); F41.9 Anxiety disorder, unspecified; I10 Essential (primary) hypertension; E11.69 Type 2 diabetes mellitus with other specified complication; E66.9 Obesity, unspecified; Z98.890 Other specified postprocedural states; R11.2 Nausea with vomiting, unspecified; F10.90 Alcohol use, unspecified, uncomplicated; Z68.34 Body mass index [BMI] 34.0-34.9, adult; Z79.84 Long term (current) use of oral hypoglycemic drugs; Z79.1 Long term (current) use of non-steroidal anti-inflammatories (NSAID); Z79.51 Long term (current) use of inhaled steroids; Z79.85 Long-term (current) use of injectable non-insulin antidiabetic drugs; Z79.899 Other long term (current) drug therapy
CPT/HCPCS: 27130; 36415; 73501; 80048; 82948; 85025; 86850; 86900; 86901; 97110; 97116; 97161; 97165; 97530; 97535; A9270; C1776; G0378; G0379; J0171; J0330; J0690; J1100; J1170; J1885; J2250; J2270; J2405; J2704; J2710; J2795; J3010; J3360; J7120

== ENCOUNTER 2023-11-20 11:55 | Outpatient (CLI) | payer BC, SELFPAY ==
--- NOTE | ~2023-11-20 | XR_ITS ---
XR chest 2V DATE: 11/20/2023 13:30 INDICATION: Preoperative evaluation. No chest complaints. TECHNIQUE: PA and lateral views COMPARISON: None FINDINGS: Normal heart size. No hilar or mediastinal enlargement. No pulmonary infiltrate or consolid ation, pleural effusion or pulmonary vascular congestion or pneumothorax. Included skeletal structure s are unremarkable. Surgical clips, right upper quadrant, likely due to cholecystectomy. IMPRESSION: No active cardiopulmonary disease Reviewed, dictated and finalized at location B.
--- NOTE | 2023-11-20 12:56 | ECG_ITS ---
Measurements Intervals [place] Rate: 66 P: 56 VA: 182 QRS: 15 QRSD: 101 T: 23 QT: 400 QTc: 420 Interpretive Statements SINUS RHYTHM ATRIAL PREMATURE COMPLEX INCOMPLETE RIGHT BUNDLE BRANCH BLOCK BASELINE ARTIFACT- II, III, AVR, AVL, AVF BORDERLINE ECG COMPARED TO ECG 03/27/2022 15:25:50 NO SIGNIFICANT CHANGES Electronically Signed On 11-20-2023 13:40:52 CDT by Ronnie Edmonds D.O.
[2023-11-20 13:48] LABS: Basophils Percent Auto 0.5 % (0.2-1.2); Eosinophils Absolute Auto 0.3 K/mm3 (0-0.3); Eosinophils Percent Auto 3.6 % (0-4.4); Hematocrit 39.8 % (42.0-52.0); Hemoglobin 13.1 g/dL (14.0-18.0); Immature Granulocyte Absolute 0.02 K/mm3 (0.00-0.031); Immature Granulocyte Percent A 0.2 % (0-0.5); Lymphocytes Absolute Auto 2.04 K/mm3 (0.9-3.2); Lymphocytes Percent Auto 23.9 % (18.3-44.2); Mean Corpuscular HGB Conc 32.9 g/dl (32-36); Mean Corpuscular Hemoglobin 30.9 pg (26-34); Mean Corpuscular Volume 93.9 fl (80-100); Mean Platelet Volume 9.7 fl (7.4-10.4); Monocytes Absolute Auto 0.7 K/mm3 (0.1-0.6); Monocytes Percent Auto 7.8 % (2.6-8.5); Neutrophils Absolute Auto 5.5 K/mm3 (1.3-6.7); Platelet Count Result 297 k/mm3 (150-375); Red Blood Count 4.24 M/mm3 (4.6-6.20); Red Cell Distribution Width 12.6 % (11.5-14.5); White Blood Count 8.6 K/mm3 (4.5-10.0)
[2023-11-20 13:59] LABS: Albumin Level 4.4 g/dL (3.5-5.1)
[2023-11-20 14:00] LABS: Alanine Aminotransferase 25 U/L (6-50); Albumin Level 4.3 g/dL (3.5-5.1); Alkaline Phosphatase 96 U/L (38-126); Anion Gap 6 mmol/L (8-16); Aspartate Amino Transferase 26 U/L (17-59); Bilirubin,Total 0.6 mg/dL (0.2-1.3); Blood Urea Nitrogen 14 mg/dL (9-20); Calcium 9.6 mg/dL (8.4-10.2); Carbon Dioxide 32 mmol/L (22-30); Chloride 98 mmol/L (98-107); Estimated Glomerular Filt Rate > 60; Glucose 102 mg/dL (65-110); Potassium 3.6 mmol/L (3.4-5.0); Sodium 136 mmol/L (137-145)
[2023-11-20 14:05] LABS: Appearance Urine Clear (Clear); Bilirubin Urine Negative (Negative); Blood Urine Negative (Negative); Color Urine Yellow (Yellow); Glucose Urine UA Negative (Negative); Ketones Urine Negative (Negative); Leukocyte Esterase Ur Negative LEU/UL (Negative); Nitrate Urine Negative (Negative); Protein Urine Negative (Negative); Specific Grav Ur 1.008 (1.001-1.035); Urobilinogen Urine 0.2 mg/dL (<2.0)
[2023-11-20 14:08] LABS: Partial Thromboplastin Time 26.2 Seconds (22.3-36.8); Prothrombin Time 13.6 Seconds (11.1-14.7)
[2023-11-20 14:12] LABS: Add Urine Microscopic? NO
[2023-11-20 14:35] LABS: Creatinine Urine 45.4 mg/dL
[2023-11-20 14:48] LABS: Urine Cotinine NEGATIVE
[2023-11-20 14:51] LABS: MALB Creatinine Ratio < 13.2 mg/g (0-30); Microalbumin Urine Random < 6.0 mg/L (0-16.7)
[2023-11-20 15:07] LABS: MRSA (PCR) NOT DETECTED (NOT DETECTE)
[2023-11-22 14:35] LABS: Hemoglobin A1C 6.5 % (<5.7)
== END 2023-11-20 11:56 | disposition home or self-care (01) ==
PROVIDERS: Orthopaedic Surgery; PCP Family Medicine; Visit Provider Family Medicine
DX: Z01.818 Encounter for other preprocedural examination (principal); E11.9 Type 2 diabetes mellitus without complications; M17.12 Unilateral primary osteoarthritis, left knee
CPT/HCPCS: 36415; 71046; 80053; 80307; 82040; 82043; 83036; 85025; 85610; 85730; 87641; 93005

== ENCOUNTER 2023-12-04 00:12 | Day surgery (SDC) | payer BC, SELFPAY ==
[2023-11-20 12:08] VITALS: BMI 36.8
--- NOTE | 2023-11-20 12:28 | PC.NURSE ---
Report to the Outpatient Waiting Room, entrance under the green pavilion located off [facility], at time __0600 on date ___12/04/23____. Planned Procedure Time: __729 . Time changes happen often and if your time is changed the preop area will call you the afternoon before. - You and your visitor will be asked to self-screen and do not enter if you have any COVID symptoms. - A mask is optional within the hospital at this time. Patients may have clear liquids (water, carbonated beverages, clear teas, apple juice) until 3 hours prior to surgery ( 4:30 AM)with a maximum of 20 ounces. - No food from midnight until time of surgery - Infants may have breast milk until 4 hours before surgery, infant formula 6 hours prior to surgery. - Children will be allowed to drink immediately following surgery. If applicable, please bring a bottle or sippy cup to assist with drinking. Juice, water, soda, and popsicles are readily available. For infants on formula, please bring formula the day of surgery. Pacifiers are allowed. Take the following medications with a SIP of water the morning of surgery: __NONE DO NOT STOP ANY OF YOUR OTHER PRESCRIPTION MEDICATIONS PRIOR TO SURGERY ?EXCEPT THE FOLLOWING Medications to discontinue per physician __PT STATES HOLD ALEVE 7 DAYS PRE OP PER DR JENKINS LAST DOSE 11/26/23 MAY TAKE TYLENOL IF NEEDED FOR PAIN Please no make-up, nail greenlandic, hairspray, perfume, deodorant, or body powder the day of surgery. No jewelry (including any body piercings) or valuables the day of surgery, leave them at home. Please take a shower or bath the night before, or the morning of, surgery with an antibacterial soap. Wear comfortable, loose fitting clothing. Children are encouraged to wear pajamas. - Jewelry must be removed prior to entering the operating room. Rings and piercings that are not removed may be cut off. - The hospital will not accept responsibility for valuables. - Please leave all valuables, including medications, at home the day of surgery. If you are going home after surgery, a licensed dumpster driver must drive you home. - NO public transportation without another adult if you receive anesthesia. - We recommend that an adult stay with you for 24 hours following discharge. - We also recommend that you do not drive, make important decision, drink alcoholic beverages, or take any drugs that were not prescribed by your health care provider for at least 24 hours after your discharge atul Follow any additional instructions given to you from your surgeon. If you or anyone in your household have experienced Covid symptoms in the past week, please notify your surgeon or the nurse liaison at the phone number below for possible testing. VERBAL AND WRITTEN instructions given to ___PATIENT and asked if any additional questions and then verbalized understanding. Patient advised to call surgeon office or pre surgery nurse liaison [phone] if any additional questions.
[2023-11-20 12:56] VITALS: BP 118/78; PULSE 63; RESP 18; TEMP 36.7; O2SAT 100
[2023-12-04] VITALS (15 sets, daily range): BP systolic 110–133; BP diastolic 60–79; PULSE 66–81; RESP 12–18; TEMP 36.2–36.6; O2SAT 90–100; BMI 36.7
--- NOTE | ~2023-12-04 | XR_ITS ---
Left Knee Technique: Portable AP and crosstable lateral views Clinical History: Status post TKR Findings: Patient is status post total knee replacement. Orthopedic hardware alignment appears anatom ic. No hardware complication is evident. Subcutaneous emphysema and swelling is likely postoperative in nature. No acute osseous fracture is seen. Impression: Status post total knee replacement, without evidence of hardware complication. Reviewed, dictated and finalized at location . Impression: Status post total knee replacement, without evidence of hardware complication.
[2023-12-04] MEDS: LACTATED RINGERS 1,000 ML 30 ML IV CONT ×2 (07:08→10:20)
--- NOTE | 2023-12-04 07:16 | WPDANESEPPF ---
Anes - Initial Pre Proc Eval Procedure: Operation Date: 12/04/23 07:30 Proposed Procedures p Left Total Knee Arthroplasty - Grey Cruz MD Date/Time: 12/04/23 07:16 Surgeon: Grey Cruz MD Pre Op Diagnosis: Left knee djd Patient Data Age: 58 Gender: M Height: 1.78 m Weight: 116.6 kg Last Vital Signs Temp 98.0 F 11/20/23 12:56 Pulse 63 11/20/23 12:56 Resp 18 11/20/23 12:56 BP 118/78 11/20/23 12:56 Pulse Ox 100 11/20/23 12:56 O2 Del Method Room Air 11/20/23 12:56 Allergies Allergy/AdvReac Type Severity Reaction Status Date / Time No Known Allergies Allergy Verified 11/22/23 11:37 Home Medications Medication Instructions Recorded Confirmed Type escitalopram oxalate 20 mg tablet 20 mg PO HS 05/22/21 11/20/23 History metformin 500 mg tablet 500 mg PO BID 05/22/21 11/20/23 History acetaminophen 650 mg 1,300 mg PO DAILY PRN Pain 03/27/22 11/20/23 History tablet,extended release (Tylenol Arthritis Pain) atorvastatin 20 mg tablet 20 mg PO HS 03/27/22 11/20/23 History fluticasone propionate 50 1 spray intranasal PRN PRN Allergy 03/27/22 11/20/23 History mcg/actuation nasal Symptoms spray,suspension (Flonase Allergy Relief) semaglutide 0.25 mg or 0.5 mg (2 0.5 mg subcut WEEKLY 03/27/22 11/20/23 History mg/1.5 mL) subcutaneous pen injector (Ozempic) chlorthalidone 25 mg tablet 50 mg PO DAILY 04/09/22 11/20/23 History lisinopril 20 mg tablet 20 mg PO DAILY 04/09/22 11/20/23 History naproxen sodium 220 mg capsule 220 mg PO PRN PRN Pain 11/20/23 11/20/23 History (Aleve) chlorhexidine gluconate 4 % 1 applic topical ONCE #237 mL 11/22/23 Rx topical liquid (Hibiclens) Patient hx anesthesia problems: post op nausea/vomiting Family hx anesthesia problems: none Results Review: All pre-operative results and documents have been reviewed as part of the pre-operative evaluation. [facility] Past Medical History Medical History Anxiety Arthritis Degenerative joint disease (DJD) of hip Diabetes pt states a1c is under 7 Hypertension Obesity RAQUEL (obstructive sleep apnea) Osteoarthritis of hips, bilateral Pain in right hip Post-operative nausea and vomiting Wears glasses Surgical History Surgical History History of cholecystectomy History of hernia repair History of melanoma excision History of tonsillectomy S/P total hip arthroplasty S/P total hip arthroplasty Left HEATH 10/03/22 Family History Family History Mother Asthma Hypertension Depression Cerebrovascular accident Social History Social History Smoking status: Never smoker Additional smoking assessment comments: DENIES ANY FORM OF TOBACCO USE Alcohol intake: current Drinks per week: 1 Alcohol use details: ONE DRINK PER MONTH Substance use: never Substance use type: does not use Living arrangements: with family Occupation/Education: occupation Additional occupation/education comments: [employer] Spiritual care concerns: No Anes - Eval Final PreProcedure Day of Procedure 12/04/23 07:16 Patient weight: overweight Heart: regular rate and rhythm Lungs: clear to auscultation Airway: Mallampati scale class II Neurological: alert and oriented Last oral intake: >/= 8 hours ASA classification: III Emergent: no Anesthetic plan: proceed Anesthesia type and monitoring: general and standard monitoring Other findings: RAQUEL on CPAP setting 14. On oxempic, last dose approx 3 days ago. Results Review: All pre-operative results and documents have been reviewed as part of the pre-operative evaluation. Informed Consent: The patient's anesthetic plan and its attendant risks and benefits were discussed with the patient/family/POA. Questions were solicit
[2023-12-04 07:18] LABS: Glucose Point of Care 118 mg/dl (65-105)
[2023-12-04] MEDS: TRANEXAMIC ACID 1,000MG/ISO100 1,000 MG/100 ML BAG 200 MG IVPB (07:18)
[2023-12-04] MEDS: ACETAMINOPHEN 500 MG TABLET 1000 MG PO (07:19)
[2023-12-04] MEDS: SCOPOLAMINE 1 MG PATCH 1 PATCH TRANSDERM (07:20)
--- NOTE | 2023-12-04 07:20 | WPDHPUPDATE1 ---
History and Physical Update Update Date/Time: 12/04/23 07:20 History and Physical has been reviewed, including an updated exam of the patient. There are NO changes in the patient's condition. Risks, benefits, and alternatives have been discussed and questions answered. Patient agrees to proceed with procedure.
[2023-12-04] MEDS: ceFAZolin 2 GM/D5W 50 ML 2 GM/50 ML BAG IVPB ×3 (07:40→23:22)
--- NOTE | 2023-12-04 08:12 | WPDANESPNB ---
Anes - Peripheral Nerve Block Date/Time: 12/04/23 08:12 I have discussed with the patient/family/POA the placement of a peripheral nerve block for post-operative pain management, including associated risks, benefits, complications, and side effects. Alternative methods of post-operative analgesia were detailed. Questions were solicited and answers provided to the satisfaction of the patient/family/POA. Time-Out: A pre-procedural Time-Out was completed immediately before starting the procedure and confirmed: Patient Identification, Site, Procedure, Patient Position and the Availability of Requisite Equipment. Clinical Indications: Acute post-operative pain management requested by the operative surgeon. Nerve Block Insertion Note Anes-nerve block: adductor canal left Patient position: supine Skin prep: chlorhexidine Needle: 22 gauge, stimulating, insulated echogenic needle. Needle length: 80 mm Technique: ultrasound Injectate: other (Bupiv 0.5%, 30 mls. ) Observations: tolerated well Complications: none Procedure start time:: 5 Procedure end time:: 5
[2023-12-04] MEDS: SODIUM CHLORIDE 0.9% IV 37.7 ML, MORPHINE SULFATE INJ (*CRX) 2 MG, ROPivacaine HCL 1% 2... INFILTRATE (08:25)
[2023-12-04] MEDS: GENTAMICIN BONE CEMENT REFOBACIN 1 EACH TOPICAL (08:26)
[2023-12-04] MEDS: TRANEXAMIC ACID 1,000 MG/10 ML AMPUL 1000 MG IV PUSH (09:34)
[2023-12-04] MEDS: KETOROLAC 30 MG/ML VIAL (*BKC) IV PUSH (09:58)
--- NOTE | 2023-12-04 10:10 | W.PM.PROC2 ---
Procedure Note - Detailed Date of Procedure 12/04/23 Pre-op Diagnosis Left knee djd Post-op Diagnosis Same Procedure Performed L TKA Surgeon Grey Cruz MD Anesthesia General Description of Procedure THE LEFT KNEE WAS PREPPED AND DRAPED IN THE STERILE FASHION. A MIDLINE SKIN INCISION WAS MADE. A MEDIAL PARAPATELLAR ARTHROTOMY WAS MADE. THE PATELLA WAS EVERTED. THERE WAS TRICOMPARTMENT DJD. THERE WAS MINIMAL PATELLA DJD. AN INTRAMEDULLARY OMAIRA WAS PLACED IN THE FEMUR. A DISTAL FEMORAL CUT WAS MADE IN 5 DEGREES OF VALGUS REMOVING APPROXIMATELY 9 MM OF BONE FROM THE DISTAL FEMUR. THE FEMUR WAS SIZED TO 70. A 70 FEMORAL CUTTING BLOCK WAS PLACED IN 3 DEGREES OF EXTERNAL ROTATION AND IN ALIGNMENT WITH AMY'S LINE AND THE TRANSEPICONDYLAR AXIS. ANTERIOR POSTERIOR AND CHAMFER CUTS WERE MADE. THE CUTS WERE EXCELLENT. NEXT AN INTRAMEDULLARY CUTTING GUIDE WAS PLACED IN THE TIBIA. A TRANS TIBIAL CUT WAS MADE ALONG THE LONG AXIS OF THE TIBIA. APPROXIMATELY 10 MM OF BONE WAS REMOVED FROM THE HIGH SIDE OF THE TIBIA. THE TIBIA WAS THEN PLANED TO A SMOOTH SURFACE. POSTERIOR FEMORAL OSTEOPHYTES WERE REMOVED FROM THE FEMORAL CONDYLES. A 79 TIBIAL TRIAL WAS PLACED IN ALIGNMENT WITH THE 1/3 MEDIAL ASPECT OF THE TIBIAL TUBERCLE. THEN A 70 FEMORAL TRIAL COMPONENT WAS PLACED. BOTH HAD EXCELLENT FITS. EVENTUALLY A 10 MM CR POLYETHYLENE TRIAL COMPONENT WAS PLACED. THE KNEE WAS TAKEN THROUGH A RANGE OF MOTION. THE KNEE CAME OUT TO FULL EXTENSION. THERE WAS NO ABNORMAL TILT TO THE PATELLA. THERE WAS GOOD A/P AND VARUS/VALGUS STABILITY. THERE WAS NO EXCESSIVE ROLL BACK WITH FLEXION. THE TRIAL COMPONENTS WERE REMOVED. THEN A 70 FEMORAL COMPONENT AND 79 TIBIAL COMPONENT WITH A 10 CR POLYETHYLENE COMPONENT WERE CEMENTED INTO PLACE. ONCE THE CEMENT WAS HARD THE KNEE WAS TAKEN THROUGH A ROM AGAIN AND FOUND TO BE STABLE WITH NO PATELLA TILT NO EXCESSIVE ROLL BACK WITH FLEXION AND GOOD STABILITY WITH COMPLETE AND FULL EXTENSION. THE KNEE WAS IRRIGATED WITH STERILE BETADINE AND WATER FOR ABOUT 3 MINUTES. THE BLEEDERS WERE CAUTERIZED. THE ARTHROTOMY WAS REPAIRED WITH NUMBER 1 VICRYL. THE SUB CUTANEOUS LAYER WITH 2-0 VICRYL AND THE SKIN WITH MATTEO. THE WOUND WAS WASHED AND A STERILE DRESSING WAS APPLIED. PATIENT WAS EXTUBATED. Estimated Blood Loss 100 Pathology None sent Complications No immediate complications Condition Stable Disposition PACU
[2023-12-04] MEDS: fentaNYL CITRATE INJ (*CRX) 100 MCG/2 ML VIAL 25 MCG IV PUSH ×8 (10:30→11:21)
[2023-12-04 10:35] LABS: Glucose Point of Care 162 mg/dl (65-105)
[2023-12-04] MEDS: oxyCODONE HCL (*CRX) 5 MG TAB IR PO (11:06)
--- NOTE | 2023-12-04 11:45 | ADMGEN ---
This patient, Sung Wheeler, was admitted to Medical Room 246-01. Patient/family oriented to hospital policies and general routines including ID bracelet, bed and alarms, visiting hours, pain management, procedures, bathroom and other care routines, personal items, smoking policy, room service/diet, and visiting hours. Information on how to activate the Rapid Response Team has been discussed. Patient/Family are encouraged to report perceived risks to care and to ask questions if they do not understand what they are told or what they should do.
[2023-12-04] MEDS: SENNA/DOCUSATE SODIUM TABLET 2 TAB PO ×2 (12:05→17:15)
[2023-12-04] MEDS: CHLORTHALIDONE 25 MG TABLET 50 MG PO (12:05)
[2023-12-04] MEDS: ASPIRIN 325 MG ENTERIC TABLET PO ×2 (12:05→20:32)
[2023-12-04] MEDS: FAMOTIDINE 20 MG TABLET PO ×2 (12:05→20:32)
[2023-12-04] MEDS: lisinopriL 20 MG TABLET PO (12:05)
[2023-12-04] MEDS: KETOROLAC 15 MG/ML VIAL (*BKC) IV PUSH ×3 (12:06→23:21)
[2023-12-04] MEDS: polyethylene glycoL 3350 17 GM POWD.PACK PO (12:09)
[2023-12-04] MEDS: diazePAM (*CRX) 5 MG TABLET PO (13:59)
[2023-12-04] MEDS: oxyCODONE/ACETAMINOPHEN (*CRX) 5-325 MG TABLET 1 TABLET PO ×2 (13:59→20:31)
[2023-12-04] MEDS: metFORMIN HCL 500 MG TABLET PO (17:16)
[2023-12-04 20:17] LABS: Glucose Point of Care 168 mg/dl (65-105)
[2023-12-04] MEDS: ATORVASTATIN 20 MG TABLET PO (20:32)
[2023-12-04] MEDS: ESCITALOPRAM OXALATE 10 MG TABLET 20 MG PO (20:32)
[2023-12-05 00:33] VITALS: BP 119/63; PULSE 71; RESP 20; TEMP 36.6; O2SAT 100
[2023-12-05 02:57] VITALS: PULSE 66; RESP 20; O2SAT 95
[2023-12-05 05:00] VITALS: BP 107/70; PULSE 81; RESP 18; TEMP 36.7; O2SAT 92
[2023-12-05 05:22] LABS: Basophils Percent Auto 0.1 % (0.2-1.2); Eosinophils Percent Auto 0.1 % (0-4.4); Hematocrit 31.4 % (42.0-52.0); Hemoglobin 10.9 g/dL (14.0-18.0); Immature Granulocyte Absolute 0.05 K/mm3 (0.00-0.031); Immature Granulocyte Percent A 0.4 % (0-0.5); Lymphocytes Absolute Auto 1.19 K/mm3 (0.9-3.2); Lymphocytes Percent Auto 8.4 % (18.3-44.2); Mean Corpuscular HGB Conc 34.7 g/dl (32-36); Mean Corpuscular Hemoglobin 31.5 pg (26-34); Mean Corpuscular Volume 90.8 fl (80-100); Mean Platelet Volume 9.5 fl (7.4-10.4); Monocytes Absolute Auto 0.9 K/mm3 (0.1-0.6); Monocytes Percent Auto 6.6 % (2.6-8.5); Neutrophils Percent Auto 84.4 % (45.5-73.1); Platelet Count Result 275 k/mm3 (150-375); Red Blood Count 3.46 M/mm3 (4.6-6.20); Red Cell Distribution Width 12.5 % (11.5-14.5); White Blood Count 14.2 K/mm3 (4.5-10.0)
[2023-12-05 05:41] LABS: Anion Gap 8 mmol/L (4-12); Blood Urea Nitrogen 20 mg/dL (9-20); Calcium 8.1 mg/dL (8.4-10.2); Carbon Dioxide 26 mmol/L (22-30); Chloride 95 mmol/L (98-107); Estimated CRCL calculation 84 ml/min; Estimated Glomerular Filt Rate > 60; Glucose 146 mg/dL (65-110); Potassium 3.5 mmol/L (3.4-5.0); Sodium 129 mmol/L (137-145)
[2023-12-05] MEDS: KETOROLAC 15 MG/ML VIAL (*BKC) IV PUSH ×2 (05:55→12:26)
--- NOTE | 2023-12-05 08:37 | P.PNAN_ITS ---
Anes - Prog Note Post-Op Date/Time: 12/05/23 08:37 Vital Signs: Last Vital Signs Temp 36.7 C 12/05/23 05:00 Pulse 81 12/05/23 05:00 Resp 18 12/05/23 05:00 BP 107/70 12/05/23 05:00 Pulse Ox 92 12/05/23 05:00 O2 Del Method CPAP 12/05/23 02:57 O2 Flow Rate 2 12/04/23 11:15 Pain Score (VAS): 2 I/O: Intake & Output 12/04/23 12/05/23 12/05/23 23:59 07:59 15:59 Intake Total 1020 Balance 1020 Laboratory Tests 12/05/23 04:50 12/05/23 04:50 12/04/23 12/04/23 12/05/23 10:26 20:09 04:50 WBC 14.2 H RBC 3.46 L Hgb 10.9 L Hct 31.4 L MCV 90.8 MCH 31.5 MCHC 34.7 RDW 12.5 Plt Count 275 MPV 9.5 Immature Gran % (Auto) 0.4 Neut % (Auto) 84.4 H Lymph % (Auto) 8.4 L [place] % (Auto) 6.6 Eos % (Auto) 0.1 Baso % (Auto) 0.1 L Lymph # (Auto) 1.19 [place] # (Auto) 0.9 H Eos # (Auto) 0.0 Baso # (Auto) 0.0 Abs Immat Gran (auto) 0.05 H Absolute Neuts (auto) 12.0 H Absolute Nucleated RBC 0.000 Nucleated RBC % 0.0 Sodium 129 L Potassium 3.5 Chloride 95 L Carbon Dioxide 26 Anion Gap 8 BUN 20 Creatinine 1.10 Estim Creat Clear Calc 84 Estimated GFR > 60 Glucose 146 H POC Capillary Glucose 162 H 168 H Calcium 8.1 L Patient Feedback: Patient satisfied with anesthetic care.
[2023-12-05 09:12] VITALS: BP 112/61; PULSE 66; RESP 20; TEMP 36.3; O2SAT 100
[2023-12-05] MEDS: ceFAZolin 2 GM/D5W 50 ML 2 GM/50 ML BAG IVPB (09:16)
[2023-12-05] MEDS: oxyCODONE/ACETAMINOPHEN (*CRX) 5-325 MG TABLET 1 TABLET PO ×2 (09:17→15:26)
[2023-12-05] MEDS: FAMOTIDINE 20 MG TABLET PO (09:17)
[2023-12-05] MEDS: SENNA/DOCUSATE SODIUM TABLET 2 TAB PO (09:18)
[2023-12-05] MEDS: CHLORTHALIDONE 25 MG TABLET 50 MG PO (09:18)
[2023-12-05] MEDS: metFORMIN HCL 500 MG TABLET PO (09:18)
[2023-12-05] MEDS: ASPIRIN 325 MG ENTERIC TABLET PO (09:18)
[2023-12-05] MEDS: lisinopriL 20 MG TABLET PO (09:18)
[2023-12-05] MEDS: polyethylene glycoL 3350 17 GM POWD.PACK PO (09:18)
--- NOTE | 2023-12-05 09:32 | PM.PNORT ---
Progress Note: A&P Assessment and Plan (1) S/P total knee arthroplasty: Qualifiers: Laterality: left Qualified Code(s): Z96.652 - Presence of left artificial knee joint Code(s): Z96.659 - Presence of unspecified artificial knee joint Status: Acute Assessment and Plan: POD #1 : Left TKA Continue PT/OT. WBAT. Walker. HIGH FALL RISK. Continue pain control. Ice Knee. Protect skin. DVT prophylaxis with Aspirin. SCDs. Incentive Spirometry Use reviewed. Monitor Dressing. Change prior to discharge. Bowel Regimen. Dispo: Home with Home Health pending progress with PT/OT Plan Reviewed history, exam, radiographs and current labs with attending MD and covering surgeon, Dr. Cruz, who agrees with current plan as indicated above. No further recommendations from Dr. Cruz at this time. Subjective Subjective Date/Time Seen: 12/05/23 09:32 Post Op day: 1 Principal diagnosis: Left Knee DJD Interval history: POD #1: LEFT TKA Patient doing well. Pain well controlled. No new concerns. Hopeful for d/c today. Review of Systems Review of Systems: All systems reviewed & are unremarkable except as noted in HPI and below Constitutional: Constitutional: Denies fever(s) and Denies headache(s) ENT: Denies headache(s) Cardiovascular: Cardiovascular: Denies chest pain, Denies diaphoresis, Denies palpitations and Denies dyspnea Respiratory: Respiratory: Denies dyspnea Gastrointestinal: Gastrointestinal: Denies abdominal pain, Denies constipation, Denies nausea and Denies vomiting Genitourinary: Genitourinary: Denies dysuria and Reports nocturia Musculoskeletal: Musculoskeletal: Reports arthralgias (Left Knee ), Reports joint swelling (Left Knee ) and Reports limited range of motion (ROM limited due to recent surgical intervention LEFT Knee ) Neurologic: Denies headache(s) Endocrine: Endocrine: Denies palpitations Exam Const: General: comfortable and no acute distress Resp: Effort & Inspection: normal respiratory effort Cardio: Rate: regular rate Rhythm: regular rhythm GI: GI Palp: Yes Soft to palpation, No Tenderness to palpation present (GI) and No Guarding due to palpation present (GI) Skin: General skin exam: wounds noted (see extremity assessment ) Wounds: wounds noted (see extremity assessment ) Neuro: Cognition (Neuro): normal cognition Other: NV intact aside from block. Moves toes. Sensation intact to light touch. +ankle dorsiflexion/plantarflexion. Extrem: Left lower extremity: normal to inspection, normal capillary refill, knee Details: tenderness (diffuse ) Location: of the patella, swelling (moderate consistent to recent surgery ), abnormal ROM (limited due to recent surgery ) Details: pain with active ROM and pain with passive ROM and ecchymosis (as expected with recent surgery. NO hematoma. ), lower leg (Negative Ronna's Sign ), ankle (+ankle dorsiflexion/plantarflexion ) Details: normal to inspection, no edema and normal ROM; no tenderness and no swelling and foot Details: normal capillary refill, toes with normal ROM, vascular exam Details: dorsalis pedis pulse present and motor-sensory exam light-touch normal; no tenderness Other: Incision left TKA dressing c/d/i. No hematoma. No signs of infection. No wound dehiscence. Psych: Mental Status: mental status grossly normal Objective Data Vital Signs Vital Signs: Vital Signs - 24 hr 12/04/23 10:20 12/04/23 10:30 12/04/23 10:35 Temperature 36.2 C L Pulse Rate 81 72 Respiratory Rate 14 16 Blood Pressure 131/67 122/67 Pulse Oximetry 97 95 90 Oxygen Delivery Simple Face Mask Room Air Nasal Cannula Oxygen Flow Rate 8 2 12/04/23 10:45 12/04/23 11:00 12/04/23 11:15 Temperature Pulse Rate 68 74 71 Respiratory Rate 12 15 15 Blood Pressure 126/71 122/71 125/79 Pulse Oximetry 98 96 99 Oxygen Delivery Nasal Cannula Nasal Cannula Nasal Cannula Oxygen Flow Rate 2 2 2 12/04/23 11:46 12/04/23
[2023-12-05 13:12] VITALS: BP 123/60; PULSE 68; RESP 20; TEMP 36.2; O2SAT 98
--- NOTE | 2023-12-05 13:55 | PCCCNOTE ---
On 12/05/23, the student, Dominga Ramos, provided care and completed [facility] documentation on this patient. I have reviewed the student's documentation and agree with the findings.
--- NOTE | 2023-12-05 14:01 | PC.NURSE ---
On 12/05/23, the student, [Elvie Arnold], provided care and completed [facility] documentation on this patient. I have reviewed the student's documentation and agree with the findings.
--- NOTE | 2023-12-05 14:27 | PC.NURSE ---
On 12/05/23, the student, [Elvie Arnold], provided care and completed [facility] documentation on this patient. I have reviewed the student's documentation and agree with the findings.
--- NOTE | 2023-12-05 15:14 | PM.DS ---
DS: Admitting Diagnosis Discharge Date 12/05/23 Admitting Diagnosis Left Knee DJD DS: Discharge Diagnosis Discharge Diagnosis (1) Post-operative nausea and vomiting: Code(s): R11.2 - Nausea with vomiting, unspecified; Z98.890 - Other specified postprocedural states Status: Acute Assessment and Plan: Resolved (2) S/P total knee arthroplasty: Qualifiers: Laterality: left Qualified Code(s): Z96.652 - Presence of left artificial knee joint Code(s): Z96.659 - Presence of unspecified artificial knee joint Status: Acute Assessment and Plan: POD #1 : Left TKA Continue PT/OT. WBAT. Walker. HIGH FALL RISK. Continue pain control. Ice Knee. Protect skin. DVT prophylaxis with Aspirin. SCDs. Incentive Spirometry Use reviewed. Monitor Dressing. Change prior to discharge. Bowel Regimen. Dispo: Home with Home Health pending progress with PT/OT Plan Reviewed history, exam, radiographs and current labs with attending MD and covering surgeon, Dr. Cruz, who agrees with current plan as indicated above. No further recommendations from Dr. Cruz at this time. DS: Summary Hospital Course Reason for hospitalization: Left TKA Hospital Course: 58 year old male admitted s/p Left TKA for postoperative medical management, pain control and mobilization with PT/OT. Patient progressed well with PT/OT. Pain and vitals remained stable throughout. The patient has been cleared to be discharged home with home health at this time. All discharge care instructions reviewed at depth. New medications reviewed. Follow up planned for 3 weeks in the outpatient orthopedic clinic with Dr. Cruz. Dr. Cruz in agreement with safe discharge at this time. Status at Discharge Functional status at discharge: uses cane/walker Overall status at discharge: patient is progressing back to baseline Time Spent with Patient Time attestation: Total time spent providing and/or coordinating discharge services: Exam Const: General: comfortable and no acute distress Resp: Effort & Inspection: normal respiratory effort Cardio: Rate: regular rate Rhythm: regular rhythm GI: GI Palp: Yes Soft to palpation, No Tenderness to palpation present (GI) and No Guarding due to palpation present (GI) Skin: General skin exam: wounds noted (see extremity assessment ) Wounds: wounds noted (see extremity assessment ) Neuro: Cognition (Neuro): normal cognition Other: NV intact aside from block. Moves toes. Sensation intact to light touch. +ankle dorsiflexion/plantarflexion. Extrem: Left lower extremity: normal to inspection, normal capillary refill, knee Details: tenderness (diffuse ) Location: of the patella, swelling (moderate consistent to recent surgery ), abnormal ROM (limited due to recent surgery ) Details: pain with active ROM and pain with passive ROM and ecchymosis (as expected with recent surgery. NO hematoma. ), lower leg (Negative Ronna's Sign ), ankle (+ankle dorsiflexion/plantarflexion ) Details: normal to inspection, no edema and normal ROM; no tenderness and no swelling and foot Details: normal capillary refill, toes with normal ROM, vascular exam Details: dorsalis pedis pulse present and motor-sensory exam light-touch normal; no tenderness Other: Incision left TKA dressing c/d/i. No hematoma. No signs of infection. No wound dehiscence. Psych: Mental Status: mental status grossly normal DS: Data Data Completed and Pending Labs on day of discharge: Labs from last 24 hours 12/05/23 12/04/23 04:50 20:09 WBC 14.2 H RBC 3.46 L Hgb 10.9 L Hct 31.4 L MCV 90.8 MCH 31.5 MCHC 34.7 RDW 12.5 Plt Count 275 MPV 9.5 Immature Gran % (Auto) 0.4 Neut % (Auto) 84.4 H Lymph % (Auto) 8.4 L [place] % (Auto) 6.6 Eos % (Auto) 0.1 Baso % (Auto) 0.1 L Lymph # (Auto) 1.19 [place] # (Auto) 0.9 H Eos # (Auto) 0.0 Baso # (Auto) 0.0 Abs Immat Gran (auto) 0.05 H Absolute
== END 2023-12-05 15:35 | disposition home health service (06) ==
LOC: ANHSURGERY 07:46 → ANH2MED 11:28
PROVIDERS: PCP Family Medicine; Visit Provider Orthopaedic Surgery
PROC: (CPT 27447; principal; 2023-12-04 07:30)
DX: M17.12 Unilateral primary osteoarthritis, left knee (principal); F41.9 Anxiety disorder, unspecified; E11.9 Type 2 diabetes mellitus without complications; I10 Essential (primary) hypertension; G47.33 Obstructive sleep apnea (adult) (pediatric); M16.0 Bilateral primary osteoarthritis of hip; G89.18 Other acute postprocedural pain; Z79.84 Long term (current) use of oral hypoglycemic drugs; Z79.85 Long-term (current) use of injectable non-insulin antidiabetic drugs; Z79.1 Long term (current) use of non-steroidal anti-inflammatories (NSAID); Z98.890 Other specified postprocedural states; Z90.49 Acquired absence of other specified parts of digestive tract; Z85.820 Personal history of malignant melanoma of skin; Z82.49 Family history of ischemic heart disease and other diseases of the circulatory system
CPT/HCPCS: 64447; 27447; 36415; 73560; 80048; 82948; 85025; 86850; 86900; 86901; 97110; 97116; 97161; 97165; 97530; 97535; A9270; C1713; C1776; J0171; J0330; J0690; J1100; J1170; J1885; J2250; J2270; J2371; J2405; J2704; J2795; J3010; J3370; J7120